=== PATIENT | female | born 1960 | race Caucasian/White ===

== ENCOUNTER → 2017-01-07 | Outpatient (CLI) | payer OTHER ==
--- NOTE | 2017-01-14 10:41 | MM ---
Reason for exam: screening (asymptomatic). Last mammogram was performed 13 years and 11 months ago. Physical Findings: A clinical breast exam by your physician is recommended on an annual basis and results should be correlated with mammographic findings. MG Screening Mammo w CAD Bilateral CC and MLO view(s) were taken. Prior study comparison: October 30, 2015, mammogram, performed at [facility]. November 29, 2014, mammogram, performed at [place]. February 14, 2003, left breast special view mammogram. August 16, 2002, left breast special view mammogram. The breast tissue is heterogeneously dense. This may lower the sensitivity of mammography. There is no discrete abnormality. No significant changes when compared with prior studies. ASSESSMENT: Negative, BI-RAD 1 RECOMMENDATION: Routine screening mammogram of both breasts in 1 year.
== END | disposition home or self-care (01) ==
LOC: RADMAMWWP 07:29
PROVIDERS: ATTEND Family Medicine
DX: Z12.31 Encounter for screening mammogram for malignant neoplasm of breast (principal)

== ENCOUNTER → 2017-06-10 | Outpatient (CLI) | payer OTHER ==
--- NOTE | 2017-06-10 12:14 | XR ---
EXAMINATION TYPE: XR cervical spine comp DATE OF EXAM: 06/10/2017 COMPARISON: NONE HISTORY: Left side neck pain TECHNIQUE: Four views are submitted. FINDINGS: The odontoid is intact. There are no compression deformities. The prevertebral soft tissue structur es are within normal limits. There is moderate severe degenerative disc disease C4-5 and C5-C6 with posterior spondylosis. There is foraminal encroachment at C4-5 and C5-6. The IMPRESSION: 1. Multilevel facet arthropathy and degenerative disc disease.
== END | disposition home or self-care (01) ==
LOC: RADXRMAIN 11:30
PROVIDERS: ATTEND Psychiatry & Neurology Neurology
DX: M50.321 Other cervical disc degeneration at C4-C5 level (principal); M46.92 Unspecified inflammatory spondylopathy, cervical region
CPT/HCPCS: 72050

== ENCOUNTER → 2017-06-22 | Outpatient (CLI) | payer OTHER ==
[2017-06-22 14:49] LABS: Blood Urea Nitrogen 8 mg/dL (7-17); Non-African American GFR(MDRD) >60 (>60 ml/min/1.73 sqM)
== END | disposition home or self-care (01) ==
LOC: LABWHC1 12:51
PROVIDERS: ATTEND Otolaryngology Sleep Medicine
DX: Z01.812 Encounter for preprocedural laboratory examination (principal)
CPT/HCPCS: 36415; 82565; 84520

== ENCOUNTER → 2018-01-27 | Outpatient (CLI) | payer OTHER ==
--- NOTE | 2018-01-28 10:52 | MM ---
Reason for exam: screening (asymptomatic). Last mammogram was performed 1 year and 1 month ago. Physical Findings: A clinical breast exam by your physician is recommended on an annual basis and results should be correlated with mammographic findings. MG Screening Mammo w CAD Bilateral CC and MLO view(s) were taken. CV view(s) were taken of the right breast. Prior study comparison: January 07, 2017, bilateral MG screening mammo w CAD. October 30, 2015, mammogram, performed at [facility]. The breast tissue is heterogeneously dense. This may lower the sensitivity of mammography. No significant changes when compared with prior studies. ASSESSMENT: Benign, BI-RAD 2 RECOMMENDATION: Routine screening mammogram of both breasts in 1 year.
== END | disposition home or self-care (01) ==
LOC: RADMAMWWP 12:35
PROVIDERS: ATTEND Family Medicine
DX: Z12.31 Encounter for screening mammogram for malignant neoplasm of breast (principal)
CPT/HCPCS: 77067

== ENCOUNTER → 2019-04-04 | Outpatient (CLI) | payer OTHER ==
--- NOTE | 2019-04-05 10:16 | MM ---
Reason for exam: screening (asymptomatic). Last mammogram was performed 1 year and 2 months ago. Physical Findings: A clinical breast exam by your physician is recommended on an annual basis and results should be correlated with mammographic findings. MG Screening Mammo w CAD Bilateral CC and MLO view(s) were taken. Prior study comparison: January 27, 2018, bilateral MG screening mammo w CAD. January 07, 2017, bilateral MG screening mammo w CAD. The breast tissue is heterogeneously dense. This may lower the sensitivity of mammography. There is no discrete abnormality. ASSESSMENT: Negative, BI-RAD 1 RECOMMENDATION: Routine screening mammogram of both breasts in 1 year.
== END | disposition home or self-care (01) ==
LOC: RADMAMWWP 10:13
PROVIDERS: ATTEND Family Medicine
DX: Z12.31 Encounter for screening mammogram for malignant neoplasm of breast (principal)
CPT/HCPCS: 77067

== ENCOUNTER → 2019-08-25 | Outpatient (CLI) | payer OTHER ==
[2019-08-25 15:47] VITALS: BMI 26.9
== END | disposition home or self-care (01) ==
LOC: DBWHC3 13:34
PROVIDERS: ATTEND Physician Assistant
DX: E66.3 Overweight (principal); Z68.26 Body mass index [BMI] 26.0-26.9, adult
CPT/HCPCS: 97802

== ENCOUNTER → 2020-04-06 | Outpatient (CLI) | payer OTHER ==
--- NOTE | 2020-04-09 09:52 | MM ---
Reason for exam: screening (asymptomatic). Last mammogram was performed 1 year ago. History: Took hormonal contraceptives for 2 years 6 months. Physical Findings: A clinical breast exam by your physician is recommended on an annual basis and results should be correlated with mammographic findings. MG Screening Mammo w CAD Bilateral CC and MLO view(s) were taken. Prior study comparison: April 04, 2019, bilateral MG screening mammo w CAD. January 27, 2018, bilateral MG screening mammo w CAD. There are scattered fibroglandular densities. Asymmetric breast tissue retroglandular left breast MLO, 14cm from nipple. This finding is changed when compared with previous exams. ASSESSMENT: Incomplete: need additional imaging evaluation, BI-RAD 0 RECOMMENDATION: Special view mammogram of the left breast. If lesion persists on supplemental views, image directed ultrasound is recommended. [facility] will attempt to contact patient to return for supplemental views and ultrasound if indicated.
== END | disposition home or self-care (01) ==
LOC: RADMAMWWP 09:47
PROVIDERS: ATTEND Family Medicine
DX: Z12.31 Encounter for screening mammogram for malignant neoplasm of breast (principal)
CPT/HCPCS: 77067

== ENCOUNTER → 2020-04-10 | Outpatient (CLI) | payer OTHER ==
--- NOTE | 2020-04-10 11:35 | MM ---
Reason for exam: additional evaluation requested from abnormal screening. Last mammogram was performed less than 1 month ago. History: Took hormonal contraceptives for 2 years 6 months. Physical Findings: Nurse did not find any significant physical abnormalities on exam. MG Work Up Mamm w CAD LT CC, MLO, and ML view(s) were taken of the left breast. Prior study comparison: April 06, 2020, bilateral MG screening mammo w CAD. April 04, 2019, bilateral MG screening mammo w CAD. The breast tissue is heterogeneously dense. This may lower the sensitivity of mammography. Irregular 9mm asymmetric density at the axillary tail persists. These results were verbally communicated with the patient and result sheet given to the patient on 04/10/20. ASSESSMENT: Incomplete: need additional imaging evaluation, BI-RAD 0 RECOMMENDATION: Ultrasound of the left breast. (upper outer quadrant)
--- NOTE | 2020-04-10 11:38 | USB ---
Reason for exam: additional evaluation requested from abnormal screening. History: Took hormonal contraceptives for 2 years 6 months. US Breast Workup Limited LT Left limited breast ultrasound including focal area of concern, retroareolar and axilla demonstrates a 7 x 5 x 7mm oval, irregular, solid, hypoechoic, hyperechoic lesion at 1 o'clock, biopsy recommended, a 5mm oval, lymph node at the axilla tail, appears normal and a 4mm oval lymph node at the axilla tail, appears normal. Scanned 12-3 o'clock. No other solid or cystic lesion. These results were verbally communicated with the patient and result sheet given to the patient on 04/10/20. ASSESSMENT: Suspicious, BI-RAD 4 RECOMMENDATION: Ultrasound core biopsy of the left breast. Called Dr. Stern's office with mammographic findings. Biopsy scheduled for 04/19/20 at 1:00. PRELIMINARY REPORT CALLED AND FAXED TO DR. STERN ON 04/10/20.
== END | disposition home or self-care (01) ==
LOC: RADMAMWWP 08:11
PROVIDERS: ATTEND Family Medicine
DX: R92.8 Other abnormal and inconclusive findings on diagnostic imaging of breast (principal)
CPT/HCPCS: 77065

== ENCOUNTER → 2020-04-19 | Day surgery (SDC) | payer OTHER ==
[2020-04-19 12:29] VITALS: RESP 16
[2020-04-19 13:48] VITALS: BP 149/84; PULSE 65; TEMP 98.4
--- NOTE | 2020-04-19 14:37 | USB ---
EXAMINATION TYPE: US biopsy breast VAD LT, MG diagnostic mammo LT wo CAD DATE OF EXAM: 04/19/2020 CLINICAL HISTORY: R92.8 ABN MAMMO. TECHNIQUE: Ultrasound guided core biopsy of left breast. COMPARISON: Mammogram dated 04/06/2020, ultrasound left breast 04/10/2020 FINDINGS: The procedure of ultrasound guided core biopsy was explained to the patient. Benefits, alt ernatives, and risks were discussed. An informed consent was then obtained. The patient was placed in supine positioning for imaging and for the procedure. The overlying skin w as prepped and draped in usual sterile fashion. Lidocaine was used as anesthetic into the skin and s ubcutaneous tissue up to area of concern in the left breast. A arnoldo was made with surgical scalpel. Under ultrasound guidance, a 12-gauge vacuum assisted biopsy gun device was used to obtain 5 [address]es. Following this, a biopsy clip was left in lesion. Postprocedure mammogram shows migration of t he clip along the tract approximately 3 cm superficially. The patient tolerated the procedure well without any immediate complication. The patient was kept in the radiology department for short stay after the procedure and then discharged home in stable condi tion. IMPRESSION: Successful, uncomplicated ultrasound guided core biopsy of area of concern in the 1:00 po sition of the left breast, full pathology results to follow. This procedure performed by the brianna aviles.
== END ==
LOC: RADUSWWP 11:52
PROVIDERS: ATTEND Family Medicine
DX: C50.912 Malignant neoplasm of unspecified site of left female breast (principal); Z17.0 Estrogen receptor positive status [ER+]
CPT/HCPCS: 88305; 88342; 88341; 77065; 19083; A4648; J2001

== ENCOUNTER → 2020-05-09 | Outpatient (CLI) | payer OTHER ==
[~2020-05-09] MED LIST: HEPARIN SODIUM,PORCINE 5,000 UNIT/ML 1 ML VIAL ONE
[2020-05-09 13:48] VITALS: BP 127/80; PULSE 67; RESP 20; TEMP 98
--- NOTE | 2020-05-09 14:44 | P.GSHP ---
History of Present Illness H&P Date: 05/09/20 Chief Complaint: stage IA left breast cancer Yuliana is a 59-year-old white female who underwent a routine screening mammogram performed on was noted to have an area of irregularity in the left breast upper outer quadrant. She subsequently underwent a diagnostic mammogram of the left breast and left breast ultrasound. This revealed a 9 mm asymmetric density in the axillary tail. Ultrasound-guided core biopsy was performed which revealed a grade 2 invasive ductal carcinoma. This is ER positive NM HER-2 negative. The patient does not feel anything of concern in her breast. She is not complaining of any nipple discharge or skin changes. She does not complain of any recent trauma to her breast. No infection in the breast. Caffeine: pop daily Nicotine: none Theophylline: Daily Family history: father: lung cancer (smoker) paternal great aunt: breast cancer paternal grandmother: colon cancer Hormonal History: menarche: 12 , breast fed: yes, age at first : 20 menopause: hysterectomy at 47 left ovaries, heavy bleeding BCP: 1 years, than a tubal hormones: none Surgical history: 1. Hysterectomy 2. Appendectomy 3. colonoscopy Medical History: 1. High cholesterol 2. Hypertension 3. Hypothyroidism 4. Vitamin D well Social History: Nicotine: Negative Alcohol: Negative Drugs: Negative - Constitutional Constitutional: Denies chills, Denies fever - EENT Eyes: denies blurred vision, denies pain Ears: deny: decreased hearing, tinnitus Ears, nose, mouth and throat: Denies headache, Denies sore throat - Breasts Breasts: bilateral: as per HPI - Cardiovascular Cardiovascular: Denies chest pain, Denies shortness of breath - Respiratory Respiratory: Denies cough, Denies 7 - Gastrointestinal Gastrointestinal: Denies abdominal pain, Denies diarrhea, Denies nausea, Denies vomiting - Genitourinary (Female) Genitourinary: Denies dysuria, Denies hematuria - Menstruation Menstruation: Reports post hysterectomy - Musculoskeletal Comment: cervical spine arthritis - Integumentary Integumentary: Denies pruritus, Denies rash - Neurological Neurological: Denies numbness, Denies weakness - Psychiatric Psychiatric: Reports anxiety - Endocrine Comment: hypothyroid - Hematologic/Lymphatic Comment: none - Allergic/Immunologic Allergic/Immunologic: Reports as per HPI, Reports seasonal allergies Past Medical History Past Medical History: Hyperlipidemia, Hypertension, Thyroid Disorder History of Any Multi-Drug Resistant Organisms: None Reported Past Surgical History: Appendectomy, Hysterectomy, Tubal Ligation Additional Past Surgical History / Comment(s): colonoscopy Past Anesthesia/Blood Transfusion Reactions: No Reported Reaction Past Psychological History: Anxiety Smoking Status: Never smoker Past Alcohol Use History: None Reported Past Drug Use History: None Reported Medications and Allergies Home Medications Medication Instructions Recorded Confirmed Type Cholecalciferol [Vitamin D3 (25 5,000 unit PO DAILY 04/11/20 05/09/20 History Mcg = 1000 Iu)] Fluticasone Nasal [place] [Flonase 2 spr EA NOSTRIL QA 04/11/20 05/09/20 History Nasal [place]] Levothyroxine Sodium [Tirosint] 75 mcg PO QA 04/11/20 05/09/20 History Simvastatin [Zocor] 20 mg PO HS 04/11/20 05/09/20 History lisinopriL [Prinivil] 20 mg PO 04/11/20 05/09/20 History Allergies Allergy/AdvReac Type Severity Reaction Status Date / Time amoxicillin Allergy Unknown Verified 05/09/20 13:42 Surgical - Exam Vital Signs Temp Pulse Resp BP Pulse Ox 98.0 F 67 20 127/80 100 05/09/20 13:44 05/09/20 13:44 05/09/20 13:44 05/09/20 13:44 05/09/20 13:44 BMI 27.1 - General well developed, well nourished, no distress - Eyes normal ocular movement - ENT no hearing loss, no congestion - Neck trachea midline - Respiratory normal respiratory effort, clear to auscultation - Cardiovascular Rhythm: regular Heart Sounds: normal: S1, S2 - Abdomen Abdomen: soft, non tender, no guarding, no rigid, no rebound - Integumentary normal turgor - Neurologic no disoriented, no combative - Musculoskeletal normal gait, normal posture - Psychiatric oriented to time, oriented to person, oriented to place, speech is normal, memory intact breast exam: BRA : 38D inspection: bilateral grade 3 ptosis palpation: right breast: Positional exam no dominant masses or nodules of concern Right axilla: No adenopathy of concern Left breast: Multiple positional exam no dominant masses or nodules of concern, small skin change for the ultrasound core biopsy was performed Left axilla: No adenopathy of concern Results Mammogram and ultrasound reviewed Pathology results reviewed/invasive ductal carcinoma grade 2 ER positive NM negative HER-2 negative Assessment and Plan Assessment: Impression: 1. Stage IA left breast cancer 2. Cervical spine disease Plan: 1. medical clearance /DR. Stern 2. Left breast needle localization lumpectomy with possible onc- plastic tissue transfer, sentinel node injection sentinel node biopsy, possible axillary node dissection 3. present to tumor board 4. Appointment with radiation oncology The patient was given the option of mastectomy versus lumpectomy. It was recommended that she undergo a lumpectomy. She is in agreement. Risks and benefits of the procedure including bleeding infection reaction to the anesthetic as well as a possible positive margin requiring reexcision were discussed. She understands and wishes to proceed. Additionally we discussed sentinel node biopsy possible axillary node dissection. Again she understands risks and benefits including bleeding and infection reaction to the anesthetic, possible lymphedema, possible need to do a completion dissection if the node were noted to be positive on permanent section and she wishes to proceed. CC: Dr. Stern encounter 50 minutes > 50% of time in planning and counselling
== END | disposition home or self-care (01) ==
LOC: WWCWWP 13:30
PROVIDERS: ATTEND Surgery
DX: Z53.9 Procedure and treatment not carried out, unspecified reason (principal)

== ENCOUNTER 2020-06-06 08:46 | Day surgery (SDC) | payer OTHER ==
[2020-06-04 11:38] VITALS: BMI 26.3
[~2020-06-06 08:46] MED LIST changes: +FAMOTIDINE 20 MG/2 ML VIAL IV PRN; -HEPARIN SODIUM,PORCINE 5,000 UNIT/ML 1 ML VIAL ONE; +HEPARIN SODIUM,PORCINE 5,000 UNIT/ML 1 ML VIAL SQ ONE; +HYDROmorphone 0.5 MG/0.5 ML SYRINGE IVP PRN; +LACTATED RINGERS 1,000 ML IV SCH; +ONDANSETRON 4 MG/2 ML VIAL IVP PRN; +Pre Op ABX Message 1 EACH MISC MISCELLANE ONE
[2020-06-06] MEDS ORDERED: ONDANSETRON 4 MG/2 ML VIAL ONE (09:14)
[2020-06-06] MEDS ORDERED: ALPRAZolam 0.5 MG TAB ONE (09:14)
[2020-06-06] MEDS ORDERED: ALPRAZolam 0.5 MG TAB PO ONE (09:17)
[2020-06-06] MEDS ORDERED: LIDOCAINE 1% (10MG/ML) FOR IV START INTRADERMA ONE (09:17)
[2020-06-06] MEDS ORDERED: LIDOCAINE 1% INJ 10MG/ML (20 ML MDV) SQ ONE ×2 (10:29→13:23)
--- NOTE | 2020-06-06 11:28 | NM ---
EXAMINATION TYPE: NM sentinel node injection DATE OF EXAM: 06/06/2020 COMPARISON: NONE INDICATION: Abnormal mammogram. Informed consent was obtained. A timeout was performed. The area around the left nipple was cleansed with alcohol. In a single dose, a total of 477 micro-cu sunil Technetium 99m Tilmanocept was injected. The patient tolerated the procedure. IMPRESSIONS: 1.. Successful injection for sentinel node evaluation.
--- NOTE | 2020-06-06 11:36 | P.NAPBC ---
NAPBC Queries - NAPBC Queries Was patient's case review presented at [facility] tumor board? If no, comment.: Yes Was patient's pathology reviewed at [facility]? If no, comment.: Yes Was breast conservation surgery offered? If no, comment.: Yes Was sentinel node biopsy offered? If no, comment.: Yes Was diagnosis confirmed by percutaneous core biopsy? If no, comment.: Yes Is patient mastectomy patient?: No Was a preop referral to reconstructive surgeon offered?: No Clinical Stage: Stage 1A, [id number]
[2020-06-06] MEDS ORDERED: DEXAMETHASONE SOD PHOSPHATE 10 MG/ML 1 ML VIAL IV ONE (11:53)
[2020-06-06] MEDS ORDERED: LIDOCAINE 1% INJ 10MG/ML (20 ML MDV) ONE ×2 (12:10→12:21)
[2020-06-06] MEDS ORDERED: SUCCINYLCHOLINE CHLORIDE 100 MG/5 ML SYR IV ONE (12:21)
[2020-06-06] MEDS ORDERED: MIDAZOLAM 2 MG/2 ML VIAL ONE (12:21)
[2020-06-06] MEDS ORDERED: PROPOFOL 10 MG/ML 20 ML VIAL IV ONE (12:21)
[2020-06-06] MEDS ORDERED: DEXAMETHASONE SOD PHOSPHATE 10 MG/ML 1 ML VIAL ONE (12:21)
[2020-06-06] MEDS ORDERED: fentaNYL (PF) 50 MCG/ML 2 ML AMP ONE (12:21)
[2020-06-06] MEDS ORDERED: PHENYLEPHRINE-0.9% NACL SYG 1 MG/10 ML SYRINGE ONE (12:21)
[2020-06-06] MEDS ORDERED: LACTATED RINGERS 1,000 ML IV ONE (13:14)
--- NOTE | 2020-06-06 14:10 | P.OP ---
Date of Procedure: 06/06/20 Preoperative Diagnosis: (Stage IA invasive ductal carcinoma, left breast at 11:30 position Postoperative Diagnosis: Same Procedure(s) Performed: Left breast sentinel node biopsy, left breast needle localization lumpectomy 11 o'clock position, onco-plastic tissue transfer 20 cm Anesthesia: LUCA Surgeon: Viola Marroquin Estimated Blood Loss (ml): 5 IV fluids (ml): 500 Pathology: other ([place] node, and breast tissue) Condition: stable Disposition: same day Indications for Procedure: Stage I area left breast cancer/invasive ductal Operative Findings: Dense breast tissue Description of Procedure: There is a 59-year-old white female who was diagnosed with a stage IA left breast cancer. A biopsy. She has opted for a lumpectomy and sentinel node biopsy. Risks and benefits of the procedure were discussed with the patient and she wished to proceed. The axilla was interrogated using the neoprobe and radioactivity was noted in the axilla. The left breast and axilla were prepped and draped in a sterile fashion. The sentinel node biopsy was performed initially. Noting the place of greatest radioactivity An incision was made in the axilla. Deep dissection into the axilla revealed a radioactive lymph node. Using the Harmonic scalpel the node was removed. The 10 second count on the node was 17,552. The background count at 10 seconds was 10. Was irrigated. The lobe was small and did not appear to be clinically suspicious. The deep tissues were closed using 0 Vicryl suture. The skin was closed using 3-0 Vicryl subcu cutaneous tissue and a 4-0 Monocryl subcuticular suture. The area of the breast was approached. An incision was made and carried down to the shaft of the needle. 2 needles had been placed. These were followed posteriorly to the chest wall. Dissection was performed onto the pectoralis major muscle. The surrounding tissue was excised. The tissue was painted for orientation. Anterior: Black, posterior: Green, inferior: Thyroid, superior: Blue,: Yellow, and lateral: Normal range. After this was accomplished the bed of the cavity was well irrigated. Titanium clips were placed. Tissue was mobilized superiorly and inferiorly. Approximately a total of 20 cm of tissue was mobilized. A new inferior margin was obtained. The tissue was then brought together using 3-0 Vicryl suture. Radiograph of the specimen revealed that the lesion of concern had been removed. The skin was closed using 3-0 Vicryl subcu cutaneous tissue and 4-0 Monocryl subcuticular suture. The patient tolerated the procedure in stable condition. All instrument sponge counts were correct at the end of the case.
--- NOTE | 2020-06-06 14:12 | P.DS ---
Providers Attending physician: Viola Marroquin Primary care physician: Js Stern Plan - Discharge Summary Discharge Rx Participant: Yes New Discharge Prescriptions: No Action Cholecalciferol [Vitamin D3 (25 Mcg = 1000 Iu)] 5,000 unit PO DAILY lisinopriL [Prinivil] 20 mg PO HS Fluticasone Nasal [place] [Flonase Nasal [place]] 1 spr EA NOSTRIL QAM Levothyroxine Sodium [Tirosint] 75 mcg PO QAM Simvastatin [Zocor] 40 mg PO HS Discharge Medication List Cholecalciferol [Vitamin D3 (25 Mcg = 1000 Iu)] 5,000 unit PO DAILY 04/11/20 [History] Fluticasone Nasal [place] [Flonase Nasal [place]] 1 spr EA NOSTRIL QAM 04/11/20 [History] Levothyroxine Sodium [Tirosint] 75 mcg PO QAM 04/11/20 [History] lisinopriL [Prinivil] 20 mg PO HS 04/11/20 [History] Simvastatin [Zocor] 40 mg PO HS 06/04/20 [History] Follow up Appointment(s)/Referral(s): Viola Marroquin MD [STAFF PHYSICIAN] - 1 Week Activity/Diet/Wound Care/Special Instructions: Drive for 24 hours from discharge Do not drive if taking narcotic pain medication Wear bra at all times May shower after 48 hours Discharge Disposition: HOME SELF-CARE
[2020-06-06 14:23] VITALS: TEMP 97.7
[2020-06-06] MEDS ORDERED: KETOROLAC 15 MG/ML 1 ML VIAL IVP ONE (14:40)
[2020-06-06 15:24] VITALS: PULSE 70; RESP 16
[2020-06-06 15:42] VITALS: BP 121/61
--- NOTE | 2020-06-06 20:07 | USB ---
EXAMINATION TYPE: US breast localization LT DATE OF EXAM: 06/06/2020 COMPARISON: Breast biopsy ultrasound 04/19/2020, diagnostic mammogram 04/19/2020, breast ultrasound 03/22 CLINICAL HISTORY: Biopsy-proven neoplasm breast TECHNIQUE: Ultrasound-guided Needle localization with wire placement of area of concern in the left b reast. FINDINGS: The procedure of ultrasound-guided needle localization with wire placement for surgical exc ision was explained to the patient. Risk, benefits, and alternatives were discussed. An informed co nsent was then obtained. A timeout was performed. The overlying skin was prepped and draped in usual sterile fashion. Lidocaine 1% was used as anesthe tic into the skin and subcutaneous tissue up to the level of area of concern. A 7 cm needle was used . This was placed via a lateral approach under ultrasound guidance. The needle was advanced into th e inferior border of the hypoechoic lesion. The wire was placed through the needle and the distal anc horing tip deployed just distal to the lesion. The needle was withdrawn. The wire was fixed to patie nt's skin. Subsequently, two 90 degrees mammograms show the needle to be in the breast. The tip however appears to be away from the expected neoplasm identified by mammography. The biopsy clip is felt to be displ aced away from the actual biopsy site was discussed with the surgeon. Images were marked for surgeon . The case was discussed with the surgeon. Radiology will rescan to evaluate for possible wire disloc ation. If wire position cannot be confirmed new wire placement will be performed. Real-time linear array sonography is performed over the breast with the wire. The wire echogenicity h owever is insufficient for accurate identification of the tip. Motion was utilized to supplement the evaluation. Motion extending towards but not to or through the lesion was evident. It was felt that t he wire had been displaced and a subsequent wire was placed at the bedside. Following identification of the patient and explanation of the repeat procedure, the skin and deeper breast tissue was again anesthetized with 1% lidocaine. A 9 cm needle utilizing a lateral approach wa s advanced and this needle was placed through the superior portion of the ultrasound lesion. The wire was deployed with the tip just distal to the lesion and the needle withdrawn. Hemostasis was obtaine d with direct pressure for mild bleeding of less than 5 mL. The surgeon observed the procedure. The 9 cm wire was labeled with tape by the surgeon. The wires were fixed to the patient's chest the patien t was taken to the OR for surgery. The patient tolerated the procedures well without any immediate complication. Patient was sensitive t o the needle placements, needle injection for local anesthetization and sentinel node injection perfo rmed between the 2 wire localizations. Specimen: Mammographic specimen: The 2 wires are within the specimen. The expected mammographic densi ty localizes within the specimen. The surgical clip is also within the specimen. Ultrasound specimen: The wire is within the specimen. The ultrasound abnormality localized appears to be within the specimen as well. Specimen report was called to the OR. IMPRESSION: 1. Successful wire localization and excision. Recommendations: 1. Recommendations are pending pathology results.
--- NOTE | 2020-06-06 20:07 | USB ---
EXAMINATION TYPE: US breast localization LT DATE OF EXAM: 06/06/2020 COMPARISON: Breast biopsy ultrasound 04/19/2020, diagnostic mammogram 04/19/2020, breast ultrasound 04/10/2020 CLINICAL HISTORY: Biopsy-proven neoplasm breast TECHNIQUE: Ultrasound-guided Needle localization with wire placement of area of concern in the left breast. FINDINGS: The procedure of ultrasound-guided needle localization with wire placement for surgical excision was explained to the patient. Risk, benefits, and alternatives were discussed. An informed consent was then obtained. A timeout was performed. The overlying skin was prepped and draped in usual sterile fashion. Lidocaine 1% was used as anesthetic into the skin and subcutaneous tissue up to the level of area of concern. A 7 cm needle was used. This was placed via a lateral approach under ultrasound guidance. The needle was advanced into the inferior border of the hypoechoic lesion. The wire was placed through the needle and the distal anchoring tip deployed just distal to the lesion. The needle was withdrawn. The wire was fixed to patient's skin. Subsequently, two 90 degrees mammograms show the needle to be in the breast. The tip however appears to be away from the expected neoplasm identified by mammography. The biopsy clip is felt to be displaced away from the actual biopsy site was discussed with the surgeon. Images were marked for surgeon. The case was discussed with the surgeon. Radiology will rescan to evaluate for possible wire dislocation. If wire position cannot be confirmed new wire placement will be performed. Real-time linear array sonography is performed over the breast with the wire. The wire echogenicity however is insufficient for accurate identification of the tip. Motion was utilized to supplement the evaluation. Motion extending towards but not to or through the lesion was evident. It was felt that the wire had been displaced and a subsequent wire was placed at the bedside. Following identification of the patient and explanation of the repeat procedure, the skin and deeper breast tissue was again anesthetized with 1% lidocaine. A 9 cm needle utilizing a lateral approach was advanced and this needle was placed through the superior portion of the ultrasound lesion. The wire was deployed with the tip just distal to the lesion and the needle withdrawn. Hemostasis was obtained with direct pressure for mild bleeding of less than 5 mL. The surgeon observed the procedure. The 9 cm wire was labeled with tape by the surgeon. The wires were fixed to the patient's chest the patient was taken to the OR for surgery. The patient tolerated the procedures well without any immediate complication. Patient was sensitive to the needle placements, needle injection for local anesthetization and sentinel node injection performed between the 2 wire localizations. Specimen: Mammographic specimen: The 2 wires are within the specimen. The expected mammographic density localizes within the specimen. The surgical clip is also within the specimen. Ultrasound specimen: The wire is within the specimen. The ultrasound abnormality localized appears to be within the specimen as well. Specimen report was called to the OR. IMPRESSION: 1. Successful wire localization and excision. Recommendations: 1. Recommendations are pending pathology results. Pathology Results: Malignant A. LEFT AXILLARY SENTINEL NODE, BIOPSY: Lymph node negative for metastasis. CK7 and RAN immunoperoxidase stains are confirmatory (controls appropriate). B. 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 Margins negative for invasive carcinoma or DCIS. See Surgical Pathology Cancer Case Summary. C. LEFT BREAST, NEW INFERIOR MARGIN, EXCISION: Benign breast tissue with fibrocystic changes. Recommendation Surgical consult of the left breast. ALISTAIR
== END 2020-06-06 15:59 | disposition home or self-care (01) ==
LOC: OR 08:46
PROVIDERS: ATTEND Surgery
DX: C50.912 Malignant neoplasm of unspecified site of left female breast (principal); E78.00 Pure hypercholesterolemia, unspecified; I10 Essential (primary) hypertension; E03.9 Hypothyroidism, unspecified; F41.9 Anxiety disorder, unspecified; E78.5 Hyperlipidemia, unspecified; E55.9 Vitamin D deficiency, unspecified; H93.19 Tinnitus, unspecified ear; Z90.710 Acquired absence of both cervix and uterus; Z98.890 Other specified postprocedural states; Z98.51 Tubal ligation status; Z80.1 Family history of malignant neoplasm of trachea, bronchus and lung; Z80.3 Family history of malignant neoplasm of breast; Z80.0 Family history of malignant neoplasm of digestive organs; Z83.3 Family history of diabetes mellitus; Z82.49 Family history of ischemic heart disease and other diseases of the circulatory system; Z82.3 Family history of stroke; Z83.42 Family history of familial hypercholesterolemia; Z84.2 Family history of other diseases of the genitourinary system; Z79.890 Hormone replacement therapy; Z79.899 Other long term (current) drug therapy; J30.9 Allergic rhinitis, unspecified; Z88.0 Allergy status to penicillin; Z86.19 Personal history of other infectious and parasitic diseases; Z86.010 Personal history of colon polyps; F32.9 Major depressive disorder, single episode, unspecified; Z87.01 Personal history of pneumonia (recurrent)
CPT/HCPCS: 19301; 38525; 88342; 88307; 88341; 77065; 76098; 76999; 76642; 38792; A9520; J2250; J1644; J1100; J2405; J2001; J3010; J1885; J2370; J0330; J2704

== ENCOUNTER → 2020-06-15 | Outpatient (CLI) | payer OTHER ==
[2020-06-15 16:23] VITALS: BP 135/74; PULSE 95; RESP 16; TEMP 98.2
--- NOTE | 2020-06-15 16:36 | P.PN ---
Progress Note - Text Progress Note Date: 06/15/20 Yuliana is a 59 year old white female status post a left breast lumpect[place] [id number]. Pathology revealed all margins to be negative for cancer. All lymph nodes were negative for metastatic disease. Patient is doing well postop without any complaints. Physical examination: Lungs: Clear Heart: Regular rate and rhythm Incisions clean and dry Impression: 1. Patient doing well postop left breast lumpectomy and sentinel node biopsy Plan: 1. Appointment medical oncology 2. Appointment radiation oncology 2. Follow-up here in 4 months time CC: Dr. Stern
== END | disposition home or self-care (01) ==
LOC: WWCWWP 16:07
PROVIDERS: ATTEND Surgery
DX: Z53.9 Procedure and treatment not carried out, unspecified reason (principal)

== ENCOUNTER → 2020-08-10 | Outpatient (CLI) | payer OTHER ==
--- NOTE | 2020-08-10 16:00 | XR ---
Lumbar spine HISTORY: Low back pain 3 views the lumbar spine Lumbar vertebral bodies show preserved height, alignment, bone mineralization. There is loss of disc height especially at L5-S1, L4-5 greater than L3-4, L2-3. Sclerosis present in the posterior elements . Is multilevel spondylosis. There is a slight spinal curvature. IMPRESSION: Degenerative disc disease, facet arthropathy, spinal curvature.
== END | disposition home or self-care (01) ==
LOC: RADXRMAIN 09:44
PROVIDERS: ATTEND Internal Medicine Hematology & Oncology
DX: M51.36 Other intervertebral disc degeneration, lumbar region (principal); M47.816 Spondylosis without myelopathy or radiculopathy, lumbar region; M43.8X6 Other specified deforming dorsopathies, lumbar region; I10 Essential (primary) hypertension; Z71.3 Dietary counseling and surveillance; E78.5 Hyperlipidemia, unspecified; C50.412 Malignant neoplasm of upper-outer quadrant of left female breast
CPT/HCPCS: 72100

== ENCOUNTER → 2020-10-12 | Outpatient (CLI) | payer OTHER ==
[2020-10-12 14:50] VITALS: BP 116/69; PULSE 71; RESP 18; TEMP 97.8
--- NOTE | 2020-10-12 15:07 | P.PN ---
Subjective Progress Note Date: 10/12/20 Principal diagnosis: left breast stage IA invasive ductal cancer Yuliana is a 60-year-old white female who underwent a routine screening mammogram performed on was noted to have an area of irregularity in the left breast upper outer quadrant. She subsequently underwent a diagnostic mammogram of the left breast and left breast ultrasound. This revealed a 9 mm asymmetric density in the axillary tail. Ultrasound-guided core biopsy was performed which revealed a grade 2 invasive ductal carcinoma. This is ER positive [place] HER-2 negative. The patient does not feel anything of concern in her breast. She did not complain of any nipple discharge or skin changes. She underwent a left breast lumpectomy and sentinel node biopsy and . Pathology revealed all margins to be negative for cancer. All lymph nodes were negative for metastatic disease. She finished 16 courses of radiation therapy on August 07. She is now on femara. She is tolerating this well. She is not concerned about any lumps masses or nodules in either breast. Caffeine: pop daily decreased from before Nicotine: none Theophylline: Daily Family history: father: lung cancer (smoker) paternal great aunt: breast cancer paternal grandmother: colon cancer Hormonal History: menarche: 12 , breast fed: yes, age at first : 20 menopause: hysterectomy at 47 left ovaries, heavy bleeding BCP: 1 years, than a tubal hormones: none Surgical history: 1. Hysterectomy 2. Appendectomy 3. colonoscopy 4. left breast lumpetomy and SNB Medical History: 1. High cholesterol 2. Hypertension 3. Hypothyroidism 4. Vitamin D well Social History: Nicotine: Negative Alcohol: Negative Drugs: Negative - Constitutional Constitutional: Denies chills, Denies fever - EENT Eyes: denies blurred vision, denies pain Ears: deny: decreased hearing, tinnitus Ears, nose, mouth and throat: Denies headache, Denies sore throat - Breasts Breasts: bilateral: as per HPI - Cardiovascular Cardiovascular: Denies chest pain, Denies shortness of breath - Respiratory Respiratory: Denies cough - Gastrointestinal Gastrointestinal: Denies abdominal pain, Denies diarrhea, Denies nausea, Denies vomiting - Genitourinary (Female) Genitourinary: Denies dysuria, Denies hematuria - Menstruation Menstruation: Reports post hysterectomy - Musculoskeletal Comment: cervical spine arthritis - Integumentary Integumentary: Denies pruritus, Denies rash - Neurological Neurological: Denies numbness, Denies weakness - Psychiatric Psychiatric: Reports anxiety - Endocrine Comment: hypothyroid - Hematologic/Lymphatic Comment: none - Allergic/Immunologic Allergic/Immunologic: Reports as per HPI, Reports seasonal allergies Objective - Vital Signs Vital signs: Vital Signs Temp 97.8 F 10/12/20 14:48 Pulse 71 10/12/20 14:48 Resp 18 10/12/20 14:48 BP 116/69 10/12/20 14:48 Pulse Ox 97 10/12/20 14:48 Intake & Output 10/11/20 10/12/20 10/12/20 18:59 06:59 18:59 Weight 74.843 kg - Exam BMI 26.2 - Constitutional General appearance: Present: average body habitus - EENT Eyes: Present: EOMI ENT: Present: hearing grossly normal - Neck Neck: Present: normal ROM - Respiratory Respiratory: bilateral: CTA - Cardiovascular Rhythm: regular Heart sounds: normal: S1, S2 - Gastrointestinal General gastrointestinal: Present: normal bowel sounds, soft - Integumentary Integumentary: Present: normal turgor - Musculoskeletal Musculoskeletal: Present: gait normal - Psychiatric Psychiatric: Present: A&O x's 3, appropriate affect, intact judgment & insight - Additional findings Additional findings: breast exam: BRA 38D inspection: well-healed scar left breast radiation changes, bilateral grade 3 ptosis Palpation: Right breast: Multi-positional exam fibrocystic changes, no dominant masses or nodules of concern Right axilla: No adenopathy of concern Left breast: Well-healed scar from prior lumpectomy, radiation changes, no dominant masses or nodules of concern, fibrocystic changes Left axilla: No adenopathy of concern Assessment and Plan Assessment: Depression: 1. Patient doing well status post lumpectomy sentinel node biopsy left breast stage IA invasive ductal carcinoma 2. Completed radiation therapy 3. Patient presently on for more Plan: 1. Follow up in March bilateral mammogram 2. follow up in December for exam 3. continue follow up with medical and radiation oncology CC: Dr. Stern, Dr. Dotson encounter 20 minutes, > 50% of time in planning and counselling
== END | disposition home or self-care (01) ==
LOC: WWCWWP 14:21
PROVIDERS: ATTEND Surgery
DX: Z53.9 Procedure and treatment not carried out, unspecified reason (principal)

== ENCOUNTER → 2021-01-18 | Outpatient (CLI) | payer OTHER ==
[2021-01-18 08:43] VITALS: BP 123/69; PULSE 71; RESP 18; TEMP 98
--- NOTE | 2021-01-18 08:57 | P.PN ---
Subjective Progress Note Date: 01/18/21 Principal diagnosis: left breast cancer stage IA left breast stage IA invasive ductal cancer Yuliana is a 60-year-old white female who underwent a routine screening mammogram performed on was noted to have an area of irregularity in the left breast upper outer quadrant. She subsequently underwent a diagnostic mammogram of the left breast and left breast ultrasound. This revealed a 9 mm asymmetric density in the axillary tail. Ultrasound-guided core biopsy was performed which revealed a grade 2 invasive ductal carcinoma. This is ER positive [place] HER-2 negative. The patient does not feel anything of concern in her breast. She did not complain of any nipple discharge or skin changes. She underwent a left breast lumpectomy and sentinel node biopsy on . Pathology revealed all margins to be negative for cancer. All lymph nodes were negative for metastatic disease. She finished 16 courses of radiation therapy on August 07. She is now on femara. She is tolerating this well. She is not concerned about any lumps masses or nodules in either breast. She has some concerns as a friend had a recurrent breast cancer, however, the patient does not note any changes she is concerned about. Caffeine: pop daily decreased from before Nicotine: none Theophylline: Daily Family history: father: lung cancer (smoker) paternal great aunt: breast cancer paternal grandmother: colon cancer Hormonal History: menarche: 12 , breast fed: yes, age at first : 20 menopause: hysterectomy at 47 left ovaries, heavy bleeding BCP: 1 years, than a tubal hormones: none Surgical history: 1. Hysterectomy 2. Appendectomy 3. colonoscopy 4. left breast lumpetomy and SNB Medical History: 1. High cholesterol 2. Hypertension 3. Hypothyroidism 4. Vitamin D well Social History: Nicotine: Negative Alcohol: Negative Drugs: Negative - Constitutional Constitutional: Denies chills, Denies fever - EENT Eyes: denies blurred vision, denies pain Ears: deny: decreased hearing, tinnitus Ears, nose, mouth and throat: Denies headache, Denies sore throat - Breasts Breasts: bilateral: as per HPI - Cardiovascular Cardiovascular: Denies chest pain, Denies shortness of breath - Respiratory Respiratory: Denies cough - Gastrointestinal Gastrointestinal: Denies abdominal pain, Denies diarrhea, Denies nausea, Denies vomiting - Genitourinary (Female) Genitourinary: Denies dysuria, Denies hematuria - Menstruation Menstruation: Reports post hysterectomy - Musculoskeletal Comment: cervical spine arthritis - Integumentary Integumentary: Denies pruritus, Denies rash - Neurological Neurological: Denies numbness, Denies weakness - Psychiatric Psychiatric: Reports anxiety - Endocrine Comment: hypothyroid - Hematologic/Lymphatic Comment: none - Allergic/Immunologic Allergic/Immunologic: Reports as per HPI, Reports seasonal allergies Objective - Vital Signs Vital signs: Vital Signs Temp 98.0 F 01/18/21 08:41 Pulse 71 01/18/21 08:41 Resp 18 01/18/21 08:41 BP 123/69 01/18/21 08:41 Pulse Ox 97 01/18/21 08:41 Intake & Output 01/17/21 01/18/21 01/18/21 18:59 06:59 18:59 Weight 75.296 kg - Exam BMI 26.4 - Constitutional General appearance: Present: average body habitus - EENT Eyes: Present: EOMI ENT: Present: hearing grossly normal - Neck Neck: Present: normal ROM - Respiratory Respiratory: bilateral: CTA - Cardiovascular Rhythm: regular Heart sounds: normal: S1, S2 - Integumentary Integumentary: Present: normal turgor - Musculoskeletal Musculoskeletal: Present: gait normal - Psychiatric Psychiatric: Present: A&O x's 3, appropriate affect, intact judgment & insight - Additional findings Additional findings: breast exam: BRA: 36D inspection: Bilateral grade 2/3 ptosis Palpation: Right breast: Multi-positional exam fibrocystic changes, no dominant masses or nodules of concern Right axilla: No adenopathy of concern Left breast: Postop changes well-healed scar no dominant masses or nodules of concern and multiple positional exam Left axilla: No adenopathy of concern Assessment and Plan Assessment: Impression/Plan: 1. Patient status post left breast lumpectomy and sentinel node biopsy for stage I a left breast cancer, patient did receive radiation therapy and is presently on for more which is tolerating well 2. Patient due for bilateral mammogram in March physician exam at that time 3. Patient to follow up sooner if any questions or concerns Cc: Dr. Stern
== END ==
LOC: WWCWWP 08:22
PROVIDERS: ATTEND Surgery
DX: C50.912 Malignant neoplasm of unspecified site of left female breast (principal); E03.9 Hypothyroidism, unspecified; E78.00 Pure hypercholesterolemia, unspecified; I10 Essential (primary) hypertension; Z17.0 Estrogen receptor positive status [ER+]; Z98.890 Other specified postprocedural states

== ENCOUNTER → 2021-04-12 | Outpatient (CLI) | payer OTHER ==
--- NOTE | 2021-04-12 14:03 | MM ---
Reason for exam: additional evaluation requested from prior study. Last mammogram was performed 10 months ago. History: Patient is postmenopausal and has history of breast cancer at age 59. Malignant US breast localization LT of the left breast, June 06, 2020. Lumpectomy of the left breast, June 06, 2020. Malignant US biopsy breast VAD LT of the left breast, April 19, 2020. Radiation therapy of the left breast. Took hormonal contraceptives for 2 years 6 months. Physical Findings: Nurse did not find any significant physical abnormalities on exam. MG Diagnostic Mammo w CAD MARIO Bilateral CC and MLO view(s) were taken. Prior study comparison: April 19, 2020, left breast MG diagnostic mammo LT wo CAD. April 04, 2019, bilateral MG screening mammo w CAD. There are scattered fibroglandular densities. Left post operative change. These results were verbally communicated with the patient and result sheet given to the patient on 04/12/21. ASSESSMENT: Benign, BI-RAD 2 RECOMMENDATION: Follow-up diagnostic mammogram of both breasts in 1 year.
== END | disposition home or self-care (01) ==
LOC: RADMAMWWP 12:57
PROVIDERS: ATTEND Radiology Radiation Oncology
DX: C50.412 Malignant neoplasm of upper-outer quadrant of left female breast (principal); Z98.890 Other specified postprocedural states; Z17.0 Estrogen receptor positive status [ER+]
CPT/HCPCS: 77066

== ENCOUNTER → 2021-04-25 | Outpatient (CLI) | payer OTHER ==
[2021-04-25 12:44] VITALS: BP 111/69; PULSE 95; RESP 16; TEMP 98.2
--- NOTE | 2021-04-25 12:57 | P.PN ---
Subjective Progress Note Date: 04/25/21 Principal diagnosis: left breast stage IA invasive ductal cancer left breast stage IA invasive ductal cancer Yuliana is a 60-year-old white female who underwent a routine screening mammogram performed on was noted to have an area of irregularity in the left breast upper outer quadrant. She subsequently underwent a diagnostic mammogram of the left breast and left breast ultrasound. This revealed a 9 mm asymmetric density in the axillary tail. Ultrasound-guided core biopsy was performed which revealed a grade 2 invasive ductal carcinoma. This is ER positive [place] HER-2 negative. The patient does not feel anything of concern in her breast. She did not complain of any nipple discharge or skin changes. She underwent a left breast lumpectomy and sentinel node biopsy on . Pathology revealed all margins to be negative for cancer. All lymph nodes were negative for metastatic disease. She finished 16 courses of radiation therapy on August 07. She is now on femara. She is tolerating this well. She had a low Oncotype score and did not receive any chemotherapy. She is not concerned about any lumps masses or nodules in either breast. She has some concerns as a friend had a recurrent breast cancer, however, the patient does not note any changes she is concerned about. She had a bilateral mammogram on 04-12-21 which was benign BIRAD 2. Note from Dr. Gibbons radiation oncology [place] [id number] reviewed. Caffeine: pop daily decreased from before Nicotine: none Theophylline: Daily Family history: father: lung cancer (smoker) paternal great aunt: breast cancer paternal grandmother: colon cancer Hormonal History: menarche: 12 , breast fed: yes, age at first : 20 menopause: hysterectomy at 47 left ovaries, heavy bleeding BCP: 1 years, than a tubal hormones: none Surgical history: 1. Hysterectomy 2. Appendectomy 3. colonoscopy 4. left breast lumpetomy and SNB Medical History: 1. High cholesterol 2. Hypertension 3. Hypothyroidism 4. Vitamin D well Social History: Nicotine: Negative Alcohol: Negative Drugs: Negative - Constitutional Constitutional: Denies chills, Denies fever - EENT Eyes: denies blurred vision, denies pain Ears: deny: decreased hearing, tinnitus Ears, nose, mouth and throat: Denies headache, Denies sore throat - Breasts Breasts: bilateral: as per HPI - Cardiovascular Cardiovascular: Denies chest pain, Denies shortness of breath - Respiratory Respiratory: Denies cough - Gastrointestinal Gastrointestinal: Denies abdominal pain, Denies diarrhea, Denies nausea, Denies vomiting - Genitourinary (Female) Genitourinary: Denies dysuria, Denies hematuria - Menstruation Menstruation: Reports post hysterectomy - Musculoskeletal Comment: cervical spine arthritis - Integumentary Integumentary: Denies pruritus, Denies rash - Neurological Neurological: Denies numbness, Denies weakness - Psychiatric Psychiatric: Reports anxiety - Endocrine Comment: hypothyroid - Hematologic/Lymphatic Comment: none - Allergic/Immunologic Allergic/Immunologic: Reports as per HPI, Reports seasonal allergies Objective - Vital Signs Vital signs: Vital Signs Temp 98.2 F 04/25/21 12:40 Pulse 95 04/25/21 12:40 Resp 16 04/25/21 12:40 BP 111/69 04/25/21 12:40 Pulse Ox 100 04/25/21 12:40 Intake & Output 04/24/21 04/25/21 04/25/21 18:59 06:59 18:59 Weight 73.936 kg - Constitutional General appearance: Present: average body habitus - EENT Eyes: Present: EOMI ENT: Present: hearing grossly normal - Respiratory Respiratory: bilateral: CTA - Cardiovascular Heart sounds: normal: S1, S2 - Gastrointestinal General gastrointestinal: Present: soft - Integumentary Integumentary: Present: normal turgor - Musculoskeletal Musculoskeletal: Present: gait normal - Psychiatric Psychiatric: Present: A&O x's 3, appropriate affect, intact judgment & insight - Additional findings Additional findings: Breast exam: BRA: 36D Inspection: Bilateral grade 3 ptosis, well-healed scar left breast from prior lumpectomy Palpation: Right breast: Multiple positional exam fibrocystic changes, no dominant masses or nodules of concern Right axilla: No adenopathy of concern Left breast: Fibrocystic changes no dominant masses or nodules of concern Well-healed scar from prior lumpectomy Left axilla: No adenopathy of concern Assessment and Plan Assessment: Impression: 1. Patient status post left breast lumpectomy sentinel node biopsy and radiation therapy for stage IA invasive ductal carcinoma, no evidence of recurrent disease 2. Patient presently on Femara 3. Patient had bilateral mammogram performed on [id number] which is benign BIRADS 2 4. No reviewed from Dr. Gibbons radiation oncology Plan: 1. Patient have repeat bilateral mammogram in 1 year 2. Follow-up here in 6 months for physician exam 3. Continued follow-up with medical and radiation oncology Cc:
== END | disposition home or self-care (01) ==
LOC: WWCWWP 12:29
PROVIDERS: ATTEND Surgery
DX: Z08 Encounter for follow-up examination after completed treatment for malignant neoplasm (principal)

== ENCOUNTER → 2021-10-24 | Outpatient (CLI) | payer OTHER ==
[2021-10-24 09:51] VITALS: BP 109/72; PULSE 74; RESP 16; TEMP 98
--- NOTE | 2021-10-24 10:15 | P.PN ---
Subjective Progress Note Date: 10/24/21 Principal diagnosis: left breast stage IA invasive ductal cancer left breast cancer stage IA left breast stage IA invasive ductal cancer Yuliana is a 60-year-old white female who underwent a routine screening mammogram performed on was noted to have an area of irregularity in the left breast upper outer quadrant. She subsequently underwent a diagnostic mammogram of the left breast and left breast ultrasound. This revealed a 9 mm asymmetric density in the axillary tail. Ultrasound-guided core biopsy was performed which revealed a grade 2 invasive ductal carcinoma. This is ER positive [place] HER-2 negative. The patient does not feel anything of concern in her breast. She did not complain of any nipple discharge or skin changes. She underwent a left breast lumpectomy and sentinel node biopsy on . Pathology revealed all margins to be negative for cancer. All lymph nodes were negative for metastatic disease. She finished 16 courses of radiation therapy on August 07. She is now on femara. She is tolerating this well. She is not concerned about any lumps masses or nodules in either breast. She has some concerns as a friend had a recurrent breast cancer, however, the patient does not note any changes she is concerned about. Her last mammogram was on this was bilateral and benign [place]IRADS 2[place] [id number] reviewed, bone density ordered for June 2022 Caffeine: coffee decaff. BID/ pop occasional Nicotine: none chocolate: Daily Family history: father: lung cancer (smoker) paternal great aunt: breast cancer paternal grandmother: colon cancer Hormonal History: menarche: 12 , breast fed: yes, age at first : 20 menopause: hysterectomy at 47 left ovaries, heavy bleeding BCP: 1 years, than a tubal hormones: none Surgical history: 1. Hysterectomy 2. Appendectomy 3. colonoscopy 4. left breast lumpetomy and SNB Medical History: 1. High cholesterol 2. Hypertension 3. Hypothyroidism 4. Vitamin D taken Social History: Nicotine: Negative Alcohol: Negative Drugs: Negative - Constitutional Constitutional: Denies chills, Denies fever - EENT Eyes: denies blurred vision, denies pain Ears: deny: decreased hearing, tinnitus Ears, nose, mouth and throat: Denies headache, Denies sore throat - Breasts Breasts: bilateral: as per HPI - Cardiovascular Cardiovascular: Denies chest pain, Denies shortness of breath - Respiratory Respiratory: Denies cough - Gastrointestinal Gastrointestinal: Denies abdominal pain, Denies diarrhea, Denies nausea, Denies vomiting - Genitourinary (Female) Genitourinary: Denies dysuria, Denies hematuria - Menstruation Menstruation: Reports post hysterectomy - Musculoskeletal Comment: cervical spine arthritis - Integumentary Integumentary: Denies pruritus, Denies rash - Neurological Neurological: Denies numbness, Denies weakness - Psychiatric Psychiatric: Reports anxiety - Endocrine Comment: hypothyroid - Hematologic/Lymphatic Comment: none - Allergic/Immunologic Allergic/Immunologic: Reports as per HPI, Reports seasonal allergies Objective - Vital Signs Vital signs: Vital Signs Temp 98.0 F 10/24/21 09:48 Pulse 74 10/24/21 09:48 Resp 16 10/24/21 09:48 BP 109/72 10/24/21 09:48 Pulse Ox Intake & Output 10/23/21 10/24/21 10/24/21 18:59 06:59 18:59 Weight 73.482 kg - Exam BMI 26.1 - Constitutional General appearance: Present: cooperative - EENT Eyes: Present: EOMI ENT: Present: hearing grossly normal - Neck Neck: Present: normal ROM - Respiratory Respiratory: bilateral: CTA - Cardiovascular Rhythm: regular Heart sounds: normal: S1, S2 - Integumentary Integumentary: Present: normal turgor - Musculoskeletal Musculoskeletal: Present: gait normal - Psychiatric Psychiatric: Present: A&O x's 3, appropriate affect, intact judgment & insight - Additional findings Additional findings: Breast Exam: BRA: 36D inspection: bilateral grade 2/3 ptosis palpation: right breast: Multi-positional exam fibrocystic changes no dominant masses or nodules of concern Right axilla: No adenopathy of concern Left breast: Well-healed scar from prior surgery, no dominant masses or nodules of concern and multiple positional exam Left axilla: No adenopathy of concern Assessment and Plan Assessment: Impression: Stage I a left breast invasive ductal carcinoma patient completed radiation therapy and is on Femara no evidence of recurrent disease Most recent mammogram March 2021 benign BIRADS 2 Plan: Continue Femara/bone density in June 2022 Bilateral mammogram March 2022 follow-up appointment at that time CC: DR. Stern
== END | disposition home or self-care (01) ==
LOC: WWCWWP 09:22
PROVIDERS: ATTEND Surgery
DX: Z53.9 Procedure and treatment not carried out, unspecified reason (principal)

== ENCOUNTER → 2022-01-21 | Outpatient (CLI) | payer OTHER ==
[2022-01-21 15:32] LABS: ALT 20 U/L (8-44); AST 22 U/L (13-35); Chol/HDL Ratio 2.97 Ratio; LDL Cholesterol,Calculated 124.8 mg/dL (0.0-131.0); VLDL Calculation 15.08 mg/dL (5.00-40.00)
== END | disposition home or self-care (01) ==
LOC: LABWHC1 06:58
PROVIDERS: ATTEND Internal Medicine Interventional Cardiology
DX: E78.00 Pure hypercholesterolemia, unspecified (principal)
CPT/HCPCS: 36415; 80061; 84450; 84460

== ENCOUNTER → 2022-04-14 | Outpatient (CLI) | payer OTHER ==
--- NOTE | 2022-04-14 10:43 | MM ---
Reason for Exam: Hx of breast cancer, conservation therapy. Last screening mammogram was performed 12 month(s) ago. Patient History: Menarche at age 12. First Full-Term at age 20. Hysterectomy at age 48. Postmenopausal. Breast cancer, age 59. Hormonal Contraceptives for 2 years, 6 months. 06/06/2020, Lumpectomy on the Left side. 06/06/2020, Malignant Core Biopsy on the left side. 04/19/2020, Malignant Core Biopsy on the left side. 2019, Radiation Therapy on the left side. Radiation Therapy, left. Tissue Density: The breast tissue is heterogeneously dense. This may lower the sensitivity of mammography. Findings: Analyzed By CAD. Pattern appears stable. Postsurgical changes are within the left breast posterior. No significant interval change is evident. Overall Assessment: Benign, BI-RAD 2 Management: Diagnostic Mammogram of both breasts in 1 year. A clinical breast exam by your physician is recommended on an annual basis and results should be correlated with mammographic findings. This exam should not preclude additional follow-up of suspicious palpable abnormalities. Results were given to the patient verbally at the time of exam. Electronically signed and approved by: Daquan Pendleton D.O. Radiologis
== END | disposition home or self-care (01) ==
LOC: RADMAMWWP 10:02
PROVIDERS: ATTEND Surgery
DX: Z85.3 Personal history of malignant neoplasm of breast (principal)
CPT/HCPCS: 77066; G0279; 77062

== ENCOUNTER → 2022-04-18 | Outpatient (CLI) | payer OTHER ==
[2022-04-18 11:54] VITALS: BP 139/79; PULSE 70; RESP 18; TEMP 98
--- NOTE | 2022-04-18 12:19 | P.PN ---
Subjective Progress Note Date: 04/18/22 Principal diagnosis: left breast stage IA invasive ductal carcinoma left breast stage IA invasive ductal cancer Yuliana is a 61-year-old white female who underwent a routine screening mammogram performed on was noted to have an area of irregularity in the left breast upper outer quadrant. She subsequently underwent a diagnostic mammogram of the left breast and left breast ultrasound. This revealed a 9 mm asymmetric density in the axillary tail. Ultrasound-guided core biopsy was performed which revealed a grade 2 invasive ductal carcinoma. This is ER positive [place] HER-2 negative. The patient does not feel anything of concern in her breast. She did not complain of any nipple discharge or skin changes. She underwent a left breast lumpectomy and sentinel node biopsy on . Pathology revealed all margins to be negative for cancer. All lymph nodes were negative for metastatic disease. She finished 16 courses of radiation therapy on August 07, 2020. She is now on femara. She is tolerating this well. She is not concerned about any lumps masses or nodules in either breast. Her last mammogram was on this was bilateral and benign BIRADS 2. Note from Dr. Dotson of 02-26-22 reviewed, bone density ordered for June 2022 Note from radiation oncology reviewed: 04-11-22 Caffeine: coffee decaff. BID/ pop occasional Nicotine: none chocolate: Daily Family history: father: lung cancer (smoker) paternal great aunt: breast cancer paternal grandmother: colon cancer Hormonal History: menarche: 12 , breast fed: yes, age at first : 20 menopause: hysterectomy at 47 left ovaries, heavy bleeding BCP: 1 years, than a tubal hormones: none Surgical history: 1. Hysterectomy 2. Appendectomy 3. colonoscopy 4. left breast lumpetomy and SNB Medical History: 1. High cholesterol 2. Hypertension 3. Hypothyroidism 4. Vitamin D taken Social History: Nicotine: Negative Alcohol: Negative Drugs: Negative - Constitutional Constitutional: Denies chills, Denies fever - EENT Eyes: denies blurred vision, denies pain Ears: deny: decreased hearing, tinnitus Ears, nose, mouth and throat: Denies headache, Denies sore throat - Breasts Breasts: bilateral: as per HPI - Cardiovascular Cardiovascular: Denies chest pain, Denies shortness of breath - Respiratory Respiratory: Denies cough - Gastrointestinal Gastrointestinal: Denies abdominal pain, Denies diarrhea, Denies nausea, Denies vomiting - Genitourinary (Female) Genitourinary: Denies dysuria, Denies hematuria - Menstruation Menstruation: Reports post hysterectomy - Musculoskeletal Comment: cervical spine arthritis - Integumentary Integumentary: Denies pruritus, Denies rash - Neurological Neurological: Denies numbness, Denies weakness - Psychiatric Psychiatric: Reports anxiety - Endocrine Comment: hypothyroid - Hematologic/Lymphatic Comment: none - Allergic/Immunologic Allergic/Immunologic: Reports as per HPI, Reports seasonal allergies Objective - Vital Signs Vital signs: Vital Signs Temp 98.0 F 04/18/22 11:51 Pulse 70 04/18/22 11:51 Resp 18 04/18/22 11:51 BP 139/79 04/18/22 11:51 Pulse Ox 97 04/18/22 11:51 FiO2 Intake & Output 04/17/22 04/18/22 04/18/22 18:59 06:59 18:59 Weight 74.843 kg - Exam BMIK: 26.6 - Constitutional General appearance: Present: cooperative - EENT Eyes: Present: EOMI ENT: Present: hearing grossly normal - Neck Neck: Present: normal ROM - Respiratory Respiratory: bilateral: CTA - Cardiovascular Heart sounds: normal: S1, S2 - Gastrointestinal General gastrointestinal: Present: soft - Integumentary Integumentary: Present: normal turgor - Musculoskeletal Musculoskeletal: Present: gait normal - Psychiatric Psychiatric: Present: A&O x's 3, appropriate affect, intact judgment & insight - Additional findings Additional findings: Breast Exam: BRA: 38D Inspection: Lateral grade 2 ptosis Palpation: Right breast: Multiple positional exam no dominant masses or nodules of concern Right axilla: No adenopathy of concern Left breast: Well-healed scar from prior surgery, no dominant masses or nodules of concern Left axilla: No adenopathy of concern Assessment and Plan Assessment: Impression: 1. High cholesterol 2. Hypertension 3. Hypothyroidism 4. No evidence of any recurrent left breast cancer Plan: Bilateral mammogram in 1 year Repeat examination in 6 months Continue following with medical and radiation oncology Continue Femara CC: Dr. Stern
== END ==
LOC: WWCWWP 11:23
PROVIDERS: ATTEND Surgery
DX: Z08 Encounter for follow-up examination after completed treatment for malignant neoplasm (principal); Z85.3 Personal history of malignant neoplasm of breast; E78.00 Pure hypercholesterolemia, unspecified; I10 Essential (primary) hypertension; E03.9 Hypothyroidism, unspecified; Z88.1 Allergy status to other antibiotic agents

== ENCOUNTER → 2022-08-08 | Outpatient (CLI) | payer OTHER ==
[2022-08-08 14:39] LABS: Basophils # (A) 0.03 X 10*3/uL (0.00-0.10); Basophils % (A) 0.4 %; Eosinophils % (A) 2.7 %; HCT 49.3 % (37.2-46.3); HGB 15.5 g/dL (12.0-15.0); Immature Grans, Automated 0.3 %; Lymphocytes % (A) 24.1 %; MCH 28.5 pg (27.0-32.0); MCHC 31.4 g/dL (32.0-37.0); MCV 90.8 fL (80.0-97.0); Mean Platelet Volume 11.2 fL (9.5-12.2); Monocytes # (A) 0.45 X 10*3/uL (0.20-1.00); NRBC Per 100 WBC 0 /100 WBCS (0.0-0.0); Neutrophils # (A) 4.96 X 10*3/uL (1.80-7.70); Neutrophils % (A) 66.5 %; Platelet Count 251 X 10*3/uL (140-440); RBC 5.43 X 10*6/uL (4.10-5.20); RDW 12.9 % (11.5-14.5); WBC 7.46 X 10*3/uL (4.50-10.00)
[2022-08-08 18:07] LABS: Chol/HDL Ratio 3.47 Ratio; Creatine Kinase 89 U/L (26-186); LDL Cholesterol,Calculated 158.7 mg/dL (0.0-131.0)
[2022-08-08 18:23] LABS: ALT 31 U/L (8-44); AST 36 U/L (13-35); African American GFR (CKD) 108.6 (60.0-200.0); Albumin 4.8 g/dL (3.8-4.9); Albumin/Globulin Ratio 1.67 (1.60-3.17); Alkaline Phosphatase 81 U/L (41-126); BUN/Creat Ratio 18.18 Ratio (12.00-20.00); Blood Urea Nitrogen 12.4 mg/dL (9.0-27.0); Calcium 10.1 mg/dL (8.7-10.3); Carbon Dioxide 22.7 mmol/L (20.0-27.5); Chloride 108 mmol/L (96-109); Globulin 2.9 g/dL (1.6-3.3); Glucose 85 mg/dL (70-110); Non-African American GFR(CKD) 93.7 (60.0-200.0); Potassium 4.3 mmol/L (3.5-5.5); Sodium 145 mmol/L (135-145); Total Protein 7.7 g/dL (6.2-8.2)
== END | disposition home or self-care (01) ==
LOC: LABWHC1 07:46
PROVIDERS: ATTEND Physician Assistant Medical
DX: I10 Essential (primary) hypertension (principal); E78.5 Hyperlipidemia, unspecified; E03.9 Hypothyroidism, unspecified
CPT/HCPCS: 36415; 80053; 80061; 82550; 83036; 84439; 84443; 84481; 85025

== ENCOUNTER → 2022-10-17 | Outpatient (CLI) | payer OTHER ==
--- NOTE | 2022-10-17 15:30 | P.PN ---
Subjective Progress Note Date: 10/17/22 Principal diagnosis: left breast stage IA invasive ductal cancer left breast stage IA invasive ductal cancer Yuliana is a 62-year-old white female who underwent a routine screening mammogram performed on was noted to have an area of irregularity in the left breast upper outer quadrant. She subsequently underwent a diagnostic mammogram of the left breast and left breast ultrasound. This revealed a 9 mm asymmetric density in the axillary tail. Ultrasound-guided core biopsy was performed which revealed a grade 2 invasive ductal carcinoma. This is ER positive [place] HER-2 negative. The patient does not feel anything of concern in her breast. She did not complain of any nipple discharge or skin changes. She underwent a left breast lumpectomy and sentinel node biopsy on . Pathology revealed all margins to be negative for cancer. All lymph nodes were negative for metastatic disease. She finished 16 courses of radiation therapy on August 07, 2020. She is now on femara. She is tolerating this well. She is not concerned about any lumps masses or nodules in either breast. Her last mammogram was on this was bilateral and benign BIRADS 2. Note from Dr. Dotson of 09-02-22 reviewed, bone density ordered for June 2022 Caffeine: coffee decaff. BID/ pop occasional Nicotine: none chocolate: Daily Family history: father: lung cancer (smoker) paternal great aunt: breast cancer paternal grandmother: colon cancer Hormonal History: menarche: 12 , breast fed: yes, age at first : 20 menopause: hysterectomy at 47 left ovaries, heavy bleeding BCP: 1 years, than a tubal hormones: none Surgical history: 1. Hysterectomy 2. Appendectomy 3. colonoscopy 4. left breast lumpectomy and SNB Medical History: 1. High cholesterol 2. Hypertension 3. Hypothyroidism 4. Vitamin D taken Social History: Nicotine: Negative Alcohol: Negative Drugs: Negative - Constitutional Constitutional: Denies chills, Denies fever - EENT Eyes: denies blurred vision, denies pain Ears: deny: decreased hearing, tinnitus Ears, nose, mouth and throat: Denies headache, Denies sore throat - Breasts Breasts: bilateral: as per HPI - Cardiovascular Cardiovascular: Denies chest pain, Denies shortness of breath - Respiratory Respiratory: Denies cough - Gastrointestinal Gastrointestinal: Denies abdominal pain, Denies diarrhea, Denies nausea, Denies vomiting - Genitourinary (Female) Genitourinary: Denies dysuria, Denies hematuria - Menstruation Menstruation: Reports post hysterectomy - Musculoskeletal Comment: cervical spine arthritis - Integumentary Integumentary: Denies pruritus, Denies rash - Neurological Neurological: Denies numbness, Denies weakness - Psychiatric Psychiatric: Reports anxiety - Endocrine Comment: hypothyroid - Hematologic/Lymphatic Comment: none - Allergic/Immunologic Allergic/Immunologic: Reports as per HPI, Reports seasonal allergies Objective - Constitutional General appearance: Present: cooperative - EENT Eyes: Present: EOMI ENT: Present: hearing grossly normal - Neck Neck: Present: normal ROM - Respiratory Respiratory: bilateral: CTA - Cardiovascular Heart sounds: normal: S1, S2 - Gastrointestinal General gastrointestinal: Present: soft - Integumentary Integumentary: Present: normal turgor - Musculoskeletal Musculoskeletal: Present: gait normal - Psychiatric Psychiatric: Present: A&O x's 3, appropriate affect, intact judgment & insight - Additional findings Additional findings: Breast Exam: BRA: 38D Inspection: bilateral grade 2 ptosis Palpation: Right breast: Multiple positional exam no dominant masses or nodules of concern Right axilla: No adenopathy of concern Left breast: Well-healed scar from prior surgery, no dominant masses or nodules of concern Left axilla: No adenopathy of concern Assessment and Plan Assessment: Impression: stage I left breast invasive ductal cancer no evidence of recurrence tolerating Femora Plan: bilateral mammogram in March 2023 with appointment at that time continue Femora CC: Dr. Stern
[2022-10-17 15:31] VITALS: BP 148/82; PULSE 79; RESP 18; TEMP 97.5
== END ==
LOC: WWCWWP 15:19
PROVIDERS: ATTEND Surgery
DX: Z85.3 Personal history of malignant neoplasm of breast (principal); E78.00 Pure hypercholesterolemia, unspecified; I10 Essential (primary) hypertension; E03.9 Hypothyroidism, unspecified; Z88.0 Allergy status to penicillin

== ENCOUNTER → 2023-04-16 | Outpatient (CLI) | payer OTHER ==
--- NOTE | 2023-04-16 14:22 | MM ---
Reason for Exam: Additional evaluation requested from prior study. Last screening mammogram was performed 12 month(s) ago. Patient History: Menarche at age 12. First Full-Term at age 20. Hysterectomy at age 48. Postmenopausal. Breast cancer, left, age 59. Previous chest radiation therapy at age 59. Hormonal Contraceptives for 2 years, 6 months. 06/06/2020, Lumpectomy on the Left side. 06/06/2020, Malignant Core Biopsy on the left side. 04/19/2020, Malignant Core Biopsy on the left side. 2019, Radiation Therapy on the left side. Radiation Therapy, left. Tissue Density: The breast tissue is heterogeneously dense. This may lower the sensitivity of mammography. Findings: Analyzed By CAD. Postsurgical posttreatment changes left breast. Chronic nodularity central and outer aspect of the right breast. No significant change from prior exams. Overall Assessment: Benign, BI-RAD 2 Management: Screening Mammogram of both breasts in 1 year. . Results were given to the patient verbally at the time of exam. Patient should continue monthly self-breast exams. A clinical breast exam by your physician is recommended on an annual basis. This exam should not preclude additional follow-up of suspicious palpable abnormalities. Electronically signed and approved by: Pavithra Malin M.D. Radiologist
== END | disposition home or self-care (01) ==
LOC: RADMAMWWP 13:58
PROVIDERS: ATTEND Surgery
DX: R92.8 Other abnormal and inconclusive findings on diagnostic imaging of breast (principal); Z85.3 Personal history of malignant neoplasm of breast; Z78.0 Asymptomatic menopausal state
CPT/HCPCS: 77066; G0279; 77062

== ENCOUNTER → 2023-04-23 | Outpatient (CLI) | payer OTHER ==
[2023-04-23 08:41] VITALS: BP 120/73; PULSE 63; RESP 18; TEMP 97.6
--- NOTE | 2023-04-23 08:46 | P.PN ---
Subjective Progress Note Date: 04/23/23 Principal diagnosis: left breast stage IA invasive ductal cancer 2019 left breast stage IA invasive ductal cancer Yuliana is a 62-year-old white female who underwent a routine screening mammogram performed on was noted to have an area of irregularity in the left breast upper outer quadrant. She subsequently underwent a diagnostic mammogram of the left breast and left breast ultrasound. This revealed a 9 mm asymmetric density in the axillary tail. Ultrasound-guided core biopsy was performed which revealed a grade 2 invasive ductal carcinoma. This is ER positive [place] HER-2 negative. The patient does not feel anything of concern in her breast. She did not complain of any nipple discharge or skin changes. She underwent a left breast lumpectomy and sentinel node biopsy on . Pathology revealed all margins to be negative for cancer. All lymph nodes were negative for metastatic disease. She finished 16 courses of radiation therapy on August 07, 2020. She is now on femara. She is tolerating this well. She is not concerned about any lumps masses or nodules in either breast. Her last mammogram was on this was bilateral and benign BIRADS 2. Is not complaining of any new lumps masses or nodules in either breast. Caffeine: coffee decaff. BID/ pop occasional Nicotine: none chocolate: Daily Family history: father: lung cancer (smoker) paternal great aunt: breast cancer paternal grandmother: colon cancer Hormonal History: menarche: 12 , breast fed: yes, age at first : 20 menopause: hysterectomy at 47 left ovaries, heavy bleeding BCP: 1 years, than a tubal hormones: none Surgical history: 1. Hysterectomy 2. Appendectomy 3. colonoscopy 4. left breast lumpectomy and SNB Medical History: 1. High cholesterol 2. Hypertension 3. Hypothyroidism 4. Vitamin D taken 5. pre-diabetic Social History: Nicotine: Negative Alcohol: Negative Drugs: Negative - Constitutional Constitutional: Denies chills, Denies fever - EENT Eyes: denies blurred vision, denies pain Ears: deny: decreased hearing, tinnitus Ears, nose, mouth and throat: Denies headache, Denies sore throat - Breasts Breasts: bilateral: as per HPI - Cardiovascular Cardiovascular: Denies chest pain, Denies shortness of breath - Respiratory Respiratory: Denies cough - Gastrointestinal Gastrointestinal: Denies abdominal pain, Denies diarrhea, Denies nausea, Denies vomiting - Genitourinary (Female) Genitourinary: Denies dysuria, Denies hematuria - Menstruation Menstruation: Reports post hysterectomy - Musculoskeletal Comment: cervical spine arthritis - Integumentary Integumentary: Denies pruritus, Denies rash - Neurological Neurological: Denies numbness, Denies weakness - Psychiatric Psychiatric: Reports anxiety - Endocrine Comment: hypothyroid - Hematologic/Lymphatic Comment: none - Allergic/Immunologic Allergic/Immunologic: Reports as per HPI, Reports seasonal allergies Objective - Constitutional General appearance: Present: cooperative - EENT Eyes: Present: EOMI ENT: Present: hearing grossly normal - Neck Neck: Present: normal ROM - Respiratory Respiratory: bilateral: CTA - Cardiovascular Heart sounds: normal: S1, S2 - Gastrointestinal General gastrointestinal: Present: soft - Integumentary Integumentary: Present: normal turgor - Musculoskeletal Musculoskeletal: Present: gait normal - Psychiatric Psychiatric: Present: A&O x's 3, appropriate affect, intact judgment & insight - Additional findings Additional findings: Breast Exam: BRA: 38D Inspection: bilateral grade 2 ptosis Palpation: Right breast: Multiple positional exam no dominant masses or nodules of concern Right axilla: No adenopathy of concern Left breast: Well-healed scar from prior surgery, no dominant masses or nodules of concern Left axilla: No adenopathy of concern Assessment and Plan Assessment: Impression: stage I left breast invasive ductal cancer no evidence of recurrence tolerating Femora Plan: bilateral mammogram in March 2024 appointment in 6 months continue to follow with medical oncology Follow-up sooner any questions or concerns continue Femora CC: Dr. Stern
== END ==
LOC: WWCWWP 08:20
PROVIDERS: ATTEND Surgery
DX: I10 Essential (primary) hypertension (principal); E78.00 Pure hypercholesterolemia, unspecified; E03.9 Hypothyroidism, unspecified; E11.9 Type 2 diabetes mellitus without complications; Z80.3 Family history of malignant neoplasm of breast; Z85.3 Personal history of malignant neoplasm of breast; Z88.0 Allergy status to penicillin; Z79.890 Hormone replacement therapy; Z79.899 Other long term (current) drug therapy

== ENCOUNTER → 2023-07-15 | Outpatient (CLI) | payer OTHER ==
[2023-07-15 11:11] LABS: Chol/HDL Ratio 2.48 Ratio; LDL Cholesterol,Calculated 84.3 mg/dL (0.0-131.0); T4, Free (Free Thyroxine) 1.58 ng/dL (0.80-1.80); VLDL Calculation 15.86 mg/dL (5.00-40.00)
== END | disposition home or self-care (01) ==
LOC: LABWHC1 08:06
PROVIDERS: ATTEND Family Medicine
DX: E03.9 Hypothyroidism, unspecified (principal); E78.5 Hyperlipidemia, unspecified
CPT/HCPCS: 36415; 80061; 84439; 84443; 84481

== ENCOUNTER → 2023-10-19 | Outpatient (CLI) | payer OTHER ==
[2023-10-19 12:09] LABS: Chol/HDL Ratio 2.59 Ratio; LDL Cholesterol,Calculated 91.6 mg/dL (0.0-131.0); VLDL Calculation 12.12 mg/dL (5.00-40.00)
[2023-10-19 12:13] LABS: ALT 44 U/L (8-44); AST 33 U/L (13-35)
== END | disposition home or self-care (01) ==
LOC: LABWHC1 06:56
PROVIDERS: ATTEND Internal Medicine Interventional Cardiology
DX: E78.2 Mixed hyperlipidemia (principal)
CPT/HCPCS: 36415; 80061; 84450; 84460

== ENCOUNTER → 2023-10-30 | Outpatient (CLI) | payer OTHER ==
[2023-10-30 11:36] VITALS: BP 119/75; PULSE 80; RESP 15; TEMP 98.2
--- NOTE | 2023-10-30 11:44 | P.PN ---
Subjective Progress Note Date: 10/30/23 04/23/23 Principal diagnosis: left breast stage IA invasive ductal cancer 2019 left breast stage IA invasive ductal cancer Yuliana is a 63-year-old white female who underwent a routine screening mammogram performed on was noted to have an area of irregularity in the left breast upper outer quadrant. She subsequently underwent a diagnostic mammogram of the left breast and left breast ultrasound. This revealed a 9 mm asymmetric density in the axillary tail. Ultrasound-guided core biopsy was performed which revealed a grade 2 invasive ductal carcinoma. This was ER positive [place] HER-2 negative. The patient did not feel anything of concern in her breast. She did not complain of any nipple discharge or skin changes. She underwent a left breast lumpectomy and sentinel node biopsy on . Pathology revealed all margins to be negative for cancer. All lymph nodes were negative for metastatic disease. She finished 16 courses of radiation therapy on August 07, 2020. She is now on femara. She is tolerating this well. She is not concerned about any lumps masses or nodules in either breast. Her last mammogram was on this was bilateral and benign BIRADS 2. note medical oncology 05-26-23 reviewed, continue [facility] note radiation oncology 05-06-23 reveiwedfinished radiation 08-07-20, no evidence of disease Caffeine: coffee decaff. BID/ pop occasional Nicotine: none chocolate: Daily Family history: father: lung cancer (smoker) paternal great aunt: breast cancer paternal grandmother: colon cancer Hormonal History: menarche: 12 , breast fed: yes, age at first : 20 menopause: hysterectomy at 47 left ovaries, heavy bleeding BCP: 1 years, than a tubal hormones: none Surgical history: 1. Hysterectomy 2. Appendectomy 3. colonoscopy 4. left breast lumpectomy and SNB Medical History: 1. High cholesterol 2. Hypertension 3. Hypothyroidism 4. Vitamin D taken 5. pre-diabetic Social History: Nicotine: Negative Alcohol: Negative Drugs: Negative - Constitutional Constitutional: Denies chills, Denies fever - EENT Eyes: denies blurred vision, denies pain Ears: deny: decreased hearing, tinnitus Ears, nose, mouth and throat: Denies headache, Denies sore throat - Breasts Breasts: bilateral: as per HPI - Cardiovascular Cardiovascular: Denies chest pain, Denies shortness of breath - Respiratory Respiratory: Denies cough - Gastrointestinal Gastrointestinal: Denies abdominal pain, Denies diarrhea, Denies nausea, Denies vomiting - Genitourinary (Female) Genitourinary: Denies dysuria, Denies hematuria - Menstruation Menstruation: Reports post hysterectomy - Musculoskeletal Comment: cervical spine arthritis - Integumentary Integumentary: Denies pruritus, Denies rash - Neurological Neurological: Denies numbness, Denies weakness - Psychiatric Psychiatric: Reports anxiety - Endocrine Comment: hypothyroid - Hematologic/Lymphatic Comment: none - Allergic/Immunologic Allergic/Immunologic: Reports as per HPI, Reports seasonal allergies Objective - Vital Signs Vital signs: Vital Signs Temp 98.2 F 10/30/23 11:10 Pulse 80 10/30/23 11:10 Resp 15 10/30/23 11:10 BP 119/75 10/30/23 11:10 Pulse Ox 97 10/30/23 11:10 FiO2 Intake & Output 10/29/23 10/30/23 10/30/23 18:59 06:59 18:59 Weight 65.771 kg - Constitutional General appearance: Present: cooperative - EENT Eyes: Present: EOMI ENT: Present: hearing grossly normal - Neck Neck: Present: normal ROM - Respiratory Respiratory: bilateral: CTA - Cardiovascular Rhythm: regular Heart sounds: normal: S1, S2 - Gastrointestinal General gastrointestinal: Present: soft - Integumentary Integumentary: Present: normal turgor - Musculoskeletal Musculoskeletal: Present: gait normal - Psychiatric Psychiatric: Present: A&O x's 3, appropriate affect, intact judgment & insight - Additional findings Additional findings: Breast Exam: BRA: 38D Inspection: bilateral grade 2 ptosis Palpation: Right breast: Multiple positional exam no dominant masses or nodules of concern Right axilla: No adenopathy of concern Left breast: Well-healed scar from prior surgery, no dominant masses or nodules of concern Left axilla: No adenopathy of concern Assessment and Plan Assessment: Impression: stage I left breast invasive ductal cancer no evidence of recurrence tolerating [facility] Plan: bilateral mammogram in March 2024 appointment in 6 months continue to follow with medical oncology Follow-up sooner any questions or concerns continue [facility] CC: Dr. Stern
== END ==
LOC: WWCWWP 10:19
PROVIDERS: ATTEND Surgery
DX: N64.89 Other specified disorders of breast (principal); E03.9 Hypothyroidism, unspecified; E78.00 Pure hypercholesterolemia, unspecified; I10 Essential (primary) hypertension; R73.03 Prediabetes; Z85.3 Personal history of malignant neoplasm of breast; Z80.3 Family history of malignant neoplasm of breast; Z88.0 Allergy status to penicillin; Z79.899 Other long term (current) drug therapy; Z79.890 Hormone replacement therapy

== ENCOUNTER → 2024-01-15 | Outpatient (CLI) | payer OTHER ==
--- NOTE | 2024-01-15 14:33 | US ---
EXAMINATION TYPE: US carotid duplex BILAT DATE OF EXAM: 01/15/2024 COMPARISON: NONE CLINICAL INDICATION: Female, 63 years old with history of R09.89 SYMPTOMS AND SIGNS INVOLVING THE CIR C; TECHNIQUE: Carotid duplex ultrasound examination. Indirect Doppler criteria was utilized. FINDINGS: EXAM MEASUREMENTS: RIGHT: Peak Systolic Velocity (PSV) cm/sec ----- Right CCA: 85.1 ----- Right ICA: 89.9 ----- Right ECA: 87.4 ICA/CCA ratio: 1.1 RIGHT: End Diastole cm/sec ----- Right CCA: 17.5 ----- Right ICA: 27.8 ----- Right ECA: 10.6 LEFT: Peak Systolic Velocity (PSV) cm/sec ----- Left CCA: 85.3 ----- Left ICA: 80.3 ----- Left ECA: 88.9 ICA/CCA ratio: 0.9 LEFT: End Diastole cm/sec ----- Left CCA: 19.7 ----- Left ICA: 22.7 ----- Left ECA: 15.7 VERTEBRALS (direction of flow): Right Vertebral: Antegrade Left Vertebral: Antegrade Rhythm: Normal No signficant stenosis IMPRESSION: 1. Mild intimal thickening in the right carotid bulb and bifurcation but no significant stenosis spac e and color grayscale imaging. 2. No hemodynamically significant stenosis bilaterally based on peak systolic velocities and ratios. Criteria for Assigning % of Stenosis / Diameter reduction (Estimation based on the indirect measurements of the internal carotid artery velocities (ICA PSV). 1. Normal (no stenosis)=ICA PSV < 125 cm/s: ratio < 2.0: ICA EDV<40 cm/s. 2. Less than 50% stenosis=ICA PSV < 125 cm/s: ratio < 2.0: ICA EDV<40 cm/s. 3. 50 to 69% stenosis=ICA PSV of 125 to 230 cm/s: ration 2.0 ? 4.0: ICA EDV 40-100 cm/s. 4. Greater than 70% stenosis to near occlusion= ICA PSV > 230 cm/s: ratio > 4.0: ICA EDV > 100 cm/s. 5. Near occlusion= ICA PSV velocities may be low or undetectable: variable ratio and ICA EDV. 6. Total occlusion=unable to detect flow.
== END | disposition home or self-care (01) ==
LOC: RADUSWWP 11:54
PROVIDERS: ATTEND Family Medicine
DX: R09.89 Other specified symptoms and signs involving the circulatory and respiratory systems (principal)
CPT/HCPCS: 93880

== ENCOUNTER → 2024-01-20 | Outpatient (CLI) | payer OTHER ==
[2024-01-20 15:51] LABS: HCT 46.7 % (37.2-46.3); HGB 15.2 g/dL (12.0-15.0); MCH 29.5 pg (27.0-32.0); MCHC 32.5 g/dL (32.0-37.0); MCV 90.7 FL (80.0-97.0); Mean Platelet Volume 11.1 FL (9.5-12.2); NRBC Per 100 WBC 0 X 10*3/uL (0.00-0.01); Platelet Count 235 X 10*3/uL (140-440); RBC 5.15 X 10*6/uL (4.10-5.20); RDW 12.5 % (11.5-14.5)
[2024-01-20 16:02] LABS: Blood Urea Nitrogen 13.7 mg/dL (9.0-27.0); Carbon Dioxide 27.1 mmol/L (21.6-31.8); Chloride 104 mmol/L (96-109); Potassium 4.2 mmol/L (3.5-5.5); Sodium 142 mmol/L (135-145)
== END | disposition home or self-care (01) ==
LOC: LABPAT 11:44
PROVIDERS: ATTEND Internal Medicine Interventional Cardiology
DX: Z01.812 Encounter for preprocedural laboratory examination (principal); I25.10 Atherosclerotic heart disease of native coronary artery without angina pectoris
CPT/HCPCS: 80051; 82565; 84520; 85027

== ENCOUNTER 2024-02-01 06:02 | Day surgery (SDC) | payer OTHER ==
[2024-01-27 14:29] VITALS: BMI 23.3
[~2024-02-01 06:02] MED LIST changes: +ALPRAZolam 0.25 MG TAB PO PRN; -FAMOTIDINE 20 MG/2 ML VIAL IV PRN; -HEPARIN SODIUM,PORCINE 5,000 UNIT/ML 1 ML VIAL SQ ONE; -HYDROmorphone 0.5 MG/0.5 ML SYRINGE IVP PRN; -LACTATED RINGERS 1,000 ML IV SCH; +NITROGLYCERIN SL TABS 0.4 MG TAB SUBLINGUAL PRN; -ONDANSETRON 4 MG/2 ML VIAL IVP PRN; -Pre Op ABX Message 1 EACH MISC MISCELLANE ONE
[2024-02-01] MEDS: SODIUM CHLORIDE 0.9% 1,000 ML IV ONE (06:08)
[2024-02-01] MEDS: SODIUM CHLORIDE 0.9% 1,000 ML in EMPTY BAG 1 BAG IV SCH (06:37)
[2024-02-01] MEDS: ALPRAZolam 0.5 MG TAB PO PRN (06:37)
[2024-02-01] MEDS: ASPIRIN 325 MG TAB PO ONE (06:37)
[2024-02-01 07:04] VITALS: RESP 16; TEMP 98
[2024-02-01] MEDS ORDERED: VERAPAMIL 2.5 MG/ML 2 ML AMP ONE (07:15)
[2024-02-01] MEDS ORDERED: LIDOCAINE 1% INJ 10MG/ML (20 ML MDV) ONE (07:15)
[2024-02-01] MEDS ORDERED: HEPARIN SODIUM 1,000 UN/ML (10ML VL) ONE (07:29)
[2024-02-01] MEDS ORDERED: fentaNYL (PF) 50 MCG/ML 2 ML AMP ONE (07:43)
[2024-02-01] MEDS: fentaNYL (PF) 50 MCG/ML 2 ML AMP IVP ONE (07:43)
[2024-02-01] MEDS: MIDAZOLAM 2 MG/2 ML VIAL IVP ONE ×2 (07:43→07:45)
[2024-02-01] MEDS: LIDOCAINE 1% INJ 10MG/ML (20 ML MDV) SQ ONE (07:44)
[2024-02-01] MEDS: VERAPAMIL SYRINGE (5 MG/10 ML) INTRAARTER ONE (07:45)
[2024-02-01] MEDS: HEPARIN SODIUM 1,000 UN/ML (10ML VL) IV ONE (07:51)
[2024-02-01] MEDS: IOPAMIDOL-370 100ML BTL INJ ONE (08:10)
[2024-02-01] MEDS ORDERED: RX INFO: IV CONTRAST WAS GIVEN 1 EACH MISC MISCELLANE PRN (08:16)
--- NOTE | 2024-02-01 08:23 | P.PCN ---
Date of Procedure: 02/01/24 Operative Findings: CARDIAC CATHETERIZATION PERFORMING PHYSICIAN: Marco Antonio Strauss MD, RPVI PROCEDURE PERFORMED: 1. Selective right and left coronary angiogram 2. Left heart catheterization 3. Ultrasound-guided access of the right radial artery 4. IFR of the LCx and LAD INDICATION: Chest discomfort and 63-year-old female patient who underwent coronary CTA and that showed severe disease involving the left anterior descending artery. Also she does have hypertension and dyslipidemia COMPLICATION: None APPROACH: Right radial artery LEVEL OF SEDATION: Moderate with a sedation length of 20 minutes PROCEDURE DESCRIPTION: After obtaining an informed consent, the patient was brought to cardiac photo lab manager. Local anesthesia was performed using lidocaine subcutaneously. The right radial artery was cannulated using Seldinger technique, the guidewire passed easily, following that we advanced a 5-Par[place]ayan sheath dilator assembly, the wire and dilator were removed and sheath was flushed. Following that, 2 mg of verapamil along with 5000 unit heparin were given. Selective right and left coronary angiogram using a 6-[place] JR4 and JL 3.5 catheters. Following that we did left heart catheterization using 6-Paraguayan pigtail catheter. After that we decided to do Dobler wire measurement of the LAD and LCx. After zeroing the Doppler wire and equalizing between the Doppler wire and guiding catheter the left main was engaged and subsequently the left circumflex was wired. The IFR came to be at 1.00. After that I did advance the wire to the LAD and IFR came to be at 0.92. The procedure at that point was completed The procedure was completed there was no complication. SELECTIVE CORONARY ANGIOGRAM: The right coronary artery: Large-caliber vessel and a dominant vessel and appears to be angiographically normal Left main: Is angiographically normal The left circumflex: Large-caliber vessel nondominant vessel with ostial disease appears to be in the range of 40 to 50%. The lesion is not flow-limiting by Doppler wire The left anterior descending artery: The proximal LAD appears to have a lesion in the range of 40 to 50%. The mid LAD has a lesion appears to be in the range of 40 to 50% as well. The lesion is not flow-limiting by Doppler wire HEMODYNAMICS: The LVEDP was 4 mmHg with no significant gradient across aortic valve CONCLUSION: 1. Intermediate two-vessel CAD involving the LCx and LAD appears to be nonflow limiting by Doppler wire 2. Normal left-sided filling pressure POSTPROCEDURE MANAGEMENT: Medical treatment
[2024-02-01] MEDS ORDERED: SODIUM CHLORIDE 0.9% 1,000 ML IV SCH (08:30)
[2024-02-01 11:56] VITALS: BP 97/55; PULSE 58
== END 2024-02-01 13:05 ==
LOC: CATHCVL 06:02
PROVIDERS: ATTEND Internal Medicine Interventional Cardiology
DX: I25.10 Atherosclerotic heart disease of native coronary artery without angina pectoris (principal); I10 Essential (primary) hypertension; E78.5 Hyperlipidemia, unspecified; I47.19 Other supraventricular tachycardia; Z82.49 Family history of ischemic heart disease and other diseases of the circulatory system; Z88.0 Allergy status to penicillin; Z79.899 Other long term (current) drug therapy
CPT/HCPCS: 93458; 93799; 76937; C1887; C1769 ×2; C1894; J2250; J2001; J3010; J1644; Q9967

== ENCOUNTER → 2024-04-19 | Outpatient (CLI) | payer BC ==
--- NOTE | 2024-04-19 09:24 | MM ---
Reason for Exam: Hx of breast cancer, conservation therapy. Last screening mammogram was performed 12 month(s) ago. Patient History: Menarche at age 12. First Full-Term at age 20. Hysterectomy at age 48. Postmenopausal. Breast cancer, left, age 59. Previous chest radiation therapy at age 59. Hormonal Contraceptives for 2 years, 6 months. 06/06/2020, Lumpectomy on the Left side. 06/06/2020, Malignant Core Biopsy on the left side. 04/19/2020, Malignant Core Biopsy on the left side. 2020, Radiation Therapy on the left side. Radiation Therapy, left. Tissue Density: There are scattered areas of fibroglandular density. Findings: Analyzed By CAD. Postoperative changes of left-sided lumpectomy. No evidence for mass or distortion. No suspicious calcifications. Overall Assessment: Benign, BI-RAD 2 Management: Diagnostic Mammogram of both breasts in 1 year. . Results were given to the patient verbally at the time of exam. Patient should continue monthly self-breast exams. A clinical breast exam by your physician is recommended on an annual basis. This exam should not preclude additional follow-up of suspicious palpable abnormalities. Note on Mary scores and lifetime risk: 1. A Mary score greater than 3% is considered moderate risk. If this is the case, consider specialist referral to assess eligibility for a risk reducing agent. 2. If overall lifetime risk for the development of breast cancer is 20% or higher, the patient may qualify for future screening with alternating mammogram and breast MRI. Electronically signed and approved by: Kye David M.D. Radiologis
== END | disposition home or self-care (01) ==
LOC: RADMAMWWP 08:57
PROVIDERS: ATTEND Surgery
DX: Z85.3 Personal history of malignant neoplasm of breast (principal); R92.323 Mammographic fibroglandular density, bilateral breasts; Z78.0 Asymptomatic menopausal state
CPT/HCPCS: 77062; 77066

== ENCOUNTER → 2024-05-27 | Outpatient (CLI) | payer BC ==
[2024-05-27 09:59] VITALS: BP 127/60; RESP 18; TEMP 98.7
--- NOTE | 2024-05-27 10:18 | P.PN ---
Subjective Progress Note Date: 05/27/24 Principal diagnosis: left breast IDC 2019; stage I left breast stage IA invasive ductal cancer 2019 [id number]- Yuliana is a 63-year-old white female who underwent a routine screening mammogram performed on was noted to have an area of irregularity in the left breast upper outer quadrant. She subsequently underwent a diagnostic mammogram of the left breast and left breast ultrasound. This revealed a 9 mm asymmetric density in the axillary tail. Ultrasound-guided core biopsy was performed which revealed a grade 2 invasive ductal carcinoma. This was ER positive [place] HER-2 negative. The patient did not feel anything of concern in her breast. She did not complain of any nipple discharge or skin changes. She underwent a left breast lumpectomy and sentinel node biopsy on . Pathology revealed all margins to be negative for cancer. All lymph nodes were negative for metastatic disease. She finished 16 courses of radiation therapy on August 07, 2020. She is now on femara. She is tolerating this well. Was noted to have low oncotype. She is not concerned about any lumps masses or nodules in either breast. Her last mammogram was on this was bilateral and benign BIRADS 2, this was personally reviewed and interpreted note medical oncology 05-26-23 reviewed, continue [facility] appointment in November 2024 note radiation oncology 05-13-24 reviewed finished radiation 08-07-20, no evidence of disease Caffeine: coffee decaff. BID/ pop occasional Nicotine: none chocolate: Daily Family history: father: lung cancer (smoker) paternal great aunt: breast cancer paternal grandmother: colon cancer Hormonal History: menarche: 12 , breast fed: yes, age at first : 20 menopause: hysterectomy at 47 left ovaries, heavy bleeding BCP: 1 years, than a tubal hormones: none Surgical history: 1. Hysterectomy 2. Appendectomy 3. colonoscopy 4. left breast lumpectomy and SNB 5. cardiac cath Medical History: 1. High cholesterol 2. Hypertension 3. Hypothyroidism 4. Vitamin D taken 5. pre-diabetic Social History: Nicotine: Negative Alcohol: Negative Drugs: Negative - Constitutional Constitutional: Denies chills, Denies fever - EENT Eyes: denies blurred vision, denies pain Ears: deny: decreased hearing, tinnitus Ears, nose, mouth and throat: Denies headache, Denies sore throat - Breasts Breasts: bilateral: as per HPI - Cardiovascular Cardiovascular: Denies chest pain, Denies shortness of breath - Respiratory Respiratory: Denies cough - Gastrointestinal Gastrointestinal: Denies abdominal pain, Denies diarrhea, Denies nausea, Denies vomiting - Genitourinary (Female) Genitourinary: Denies dysuria, Denies hematuria - Menstruation Menstruation: Reports post hysterectomy - Musculoskeletal Comment: cervical spine arthritis - Integumentary Integumentary: Denies pruritus, Denies rash - Neurological Neurological: Denies numbness, Denies weakness - Psychiatric Psychiatric: Reports anxiety - Endocrine Comment: hypothyroid - Hematologic/Lymphatic Comment: none - Allergic/Immunologic Allergic/Immunologic: Reports as per HPI, Reports seasonal allergies Objective - Vital Signs Vital signs: Vital Signs Temp 98.7 F 05/27/24 09:56 Pulse Resp 18 05/27/24 09:56 BP 127/60 05/27/24 09:56 Pulse Ox 99 05/27/24 09:56 FiO2 Intake & Output 05/26/24 05/27/24 05/27/24 18:59 06:59 18:59 Weight 65.771 kg - Constitutional General appearance: Present: cooperative - EENT Eyes: Present: EOMI ENT: Present: hearing grossly normal - Neck Neck: Present: normal ROM - Respiratory Respiratory: bilateral: CTA - Cardiovascular Heart sounds: normal: S1, S2 - Gastrointestinal General gastrointestinal: Present: soft - Integumentary Integumentary: Present: normal turgor - Musculoskeletal Musculoskeletal: Present: gait normal - Psychiatric Psychiatric: Present: A&O x's 3, appropriate affect, intact judgment & insight - Additional findings Additional findings: Breast Exam: BRA: 38D Inspection: bilateral grade 2 ptosis Palpation: Right breast: Multi- positional exam no dominant masses or nodules of concern Right axilla: No adenopathy of concern Left breast: Well-healed scar from prior surgery, no dominant masses or nodules of concern Left axilla: No adenopathy of concern Assessment and Plan Assessment: Impression: stage I left breast invasive ductal cancer 2019 no evidence of recurrence tolerating [facility] bilateral mammogram personally interpreted from 04-19-24; BIRAD 2 Plan: bilateral mammogram in March 2025 follow up after mammogram continue to follow with medical oncology Follow-up sooner any questions or concerns continue [facility] CC: Dr. Stern
== END ==
LOC: WWCWWP 09:03
PROVIDERS: ATTEND Surgery
DX: R92.8 Other abnormal and inconclusive findings on diagnostic imaging of breast (principal); N64.89 Other specified disorders of breast; Z85.3 Personal history of malignant neoplasm of breast; Z92.3 Personal history of irradiation; Z80.3 Family history of malignant neoplasm of breast; Z88.0 Allergy status to penicillin

== ENCOUNTER → 2024-06-30 | Outpatient (CLI) | payer BC ==
[2024-06-30 12:48] VITALS: BP 128/79; PULSE 54; RESP 17; TEMP 97.5
--- NOTE | 2024-06-30 13:10 | P.PN ---
Subjective Progress Note Date: 06/30/24 Subjective Progress Note Date: 06-30-24 Principal diagnosis: left breast IDC 2019; stage I left breast stage IA invasive ductal cancer 2019 [id number]- Yuliana is a 63-year-old white female who underwent a routine screening mammogram performed on was noted to have an area of irregularity in the left breast upper outer quadrant. She subsequently underwent a diagnostic mammogram of the left breast and left breast ultrasound. This revealed a 9 mm asymmetric density in the axillary tail. Ultrasound-guided core biopsy was performed which revealed a grade 2 invasive ductal carcinoma. This was ER positive [place] HER-2 negative. The patient did not feel anything of concern in her breast. She did not complain of any nipple discharge or skin changes. She underwent a left breast lumpectomy and sentinel node biopsy on . Pathology revealed all margins to be negative for cancer. All lymph nodes were negative for metastatic disease. She finished 16 courses of radiation therapy on August 07, 2020. She is now on femora. She is tolerating this well. Was noted to have low oncotype. She is not concerned about any lumps masses or nodules in either breast. Her last mammogram was on this was bilateral and benign BIRADS 2, note medical oncology 05-26-23 reviewed, continue [facility] appointment in November 2024 note radiation oncology 05-13-24 reviewed finished radiation 08-07-20, no evidence of disease On examination of 05-27-24 the patient did have some fullness in the left axilla which I believe is most likely related to scar tissue. The patient however is concerned regarding this and to assure that there is nothing there worrisome we will get an ultrasound of the axilla. An ultrasound of the axilla of the left breast was done on 06-30-24. This was personally reviewed and did not show any lesions of concern. I have discussed the results with Yuliana, she understands that she does not have any new lesions that she is concerned about. She will continue her normal surveillance schedule. Caffeine: coffee decaff. BID/ pop occasional Nicotine: none chocolate: Daily Family history: father: lung cancer (smoker) paternal great aunt: breast cancer paternal grandmother: colon cancer Hormonal History: menarche: 12 , breast fed: yes, age at first : 20 menopause: hysterectomy at 47 left ovaries, heavy bleeding BCP: 1 years, than a tubal hormones: none Surgical history: 1. Hysterectomy 2. Appendectomy 3. colonoscopy 4. left breast lumpectomy and SNB 5. cardiac cath Medical History: 1. High cholesterol 2. Hypertension 3. Hypothyroidism 4. Vitamin D taken 5. pre-diabetic Social History: Nicotine: Negative Alcohol: Negative Drugs: Negative - Constitutional Constitutional: Denies chills, Denies fever - EENT Eyes: denies blurred vision, denies pain Ears: deny: decreased hearing, tinnitus Ears, nose, mouth and throat: Denies headache, Denies sore throat - Breasts Breasts: bilateral: as per HPI - Cardiovascular Cardiovascular: Denies chest pain, Denies shortness of breath - Respiratory Respiratory: Denies cough - Gastrointestinal Gastrointestinal: Denies abdominal pain, Denies diarrhea, Denies nausea, Denies vomiting - Genitourinary (Female) Genitourinary: Denies dysuria, Denies hematuria - Menstruation Menstruation: Reports post hysterectomy - Musculoskeletal Comment: cervical spine arthritis - Integumentary Integumentary: Denies pruritus, Denies rash - Neurological Neurological: Denies numbness, Denies weakness - Psychiatric Psychiatric: Reports anxiety - Endocrine Comment: hypothyroid - Hematologic/Lymphatic Comment: none - Allergic/Immunologic Allergic/Immunologic: Reports as per HPI, Reports seasonal allergies Impression: stage I left breast invasive ductal cancer 2019 no evidence of recurrence tolerating [facility] bilateral mammogram from 04-19-24; BIRAD 2 left breast ultrasound reviewed on 06-30-24 no lesions of concern. Plan: bilateral mammogram in March 2025 follow up after mammogram continue to follow with medical oncology Follow-up sooner any questions or concerns continue [facility] CC: Dr. Stern Objective - Vital Signs Vital signs: Vital Signs Temp 97.5 F L 06/30/24 12:41 Pulse 54 L 06/30/24 12:41 Resp 17 06/30/24 12:41 BP 128/79 06/30/24 12:41 Pulse Ox 99 06/30/24 12:41 FiO2 Intake & Output 06/29/24 06/30/24 06/30/24 18:59 06:59 18:59 Weight 65.771 kg
== END ==
LOC: WWCWWP 11:13
PROVIDERS: ATTEND Surgery

== ENCOUNTER → 2024-06-30 | Outpatient (CLI) | payer BC ==
--- NOTE | 2024-06-30 11:47 | US ---
EXAMINATION TYPE: US axilla LT DATE OF EXAM: 06/30/2024 COMPARISON: None CLINICAL INDICATION: Female, 63 years old with history of N63 BREAST LUMP/MASS; R/O adenopathy TECHNIQUE: Sonographic images taken of left axilla FINDINGS/IMPRESSION: Left axilla scanned. No prominent lymph nodes identified at time of scan. No f luid collections. [facility], , 06/30/2024 11:45 AM
== END | disposition home or self-care (01) ==
LOC: RADUSWWP 10:12
PROVIDERS: ATTEND Surgery
DX: N63.20 Unspecified lump in the left breast, unspecified quadrant (principal)

== ENCOUNTER → 2024-08-26 | Outpatient (CLI) | payer BC ==
[2024-08-26 11:27] LABS: Chol/HDL Ratio 2.54 Ratio; LDL Cholesterol,Calculated 93.4 mg/dL (0.0-131.0); T4, Free (Free Thyroxine) 1.45 ng/dL (0.80-1.80); VLDL Calculation 14.48 mg/dL (5.00-40.00)
== END | disposition home or self-care (01) ==
LOC: LABWHC1 06:57
PROVIDERS: ATTEND Physician Assistant Medical
DX: Z00.00 Encounter for general adult medical examination without abnormal findings (principal); E03.9 Hypothyroidism, unspecified
CPT/HCPCS: 36415; 80061; 84439; 84443; 84481

== ENCOUNTER → 2025-04-20 | Outpatient (CLI) | payer MEDICARE ==
--- NOTE | 2025-04-20 09:22 | MM ---
Reason for Exam: Additional evaluation requested from prior study. Last screening mammogram was performed 12 month(s) ago. Patient History: Menarche at age 12. First Full-Term at age 20. Hysterectomy at age 48. Postmenopausal. Breast cancer, left, age 59. Previous chest radiation therapy at age 59. Hormonal Contraceptives for 2 years, 6 months. 06/06/2020, Lumpectomy on the Left side. 06/06/2020, Malignant Core Biopsy on the left side. 04/19/2020, Malignant Core Biopsy on the left side. 2020, Radiation Therapy on the left side. Radiation Therapy, left. Tissue Density: The breasts are heterogeneously dense, which may obscure small masses. Findings: Analyzed By CAD. Postsurgical and posttreatment changes left breast. Chronic nodularity on the right. No significant change from prior exams. Overall Assessment: Benign, BI-RAD 2 Management: Screening Mammogram of both breasts in 1 year. Results were given to the patient verbally at the time of exam. Patient should continue monthly self-breast exams. A clinical breast exam by your physician is recommended on an annual basis. This exam should not preclude additional follow-up of suspicious palpable abnormalities. Note on Mary scores and lifetime risk: 1. A Mary score greater than 3% is considered moderate risk. If this is the case, consider specialist referral to assess eligibility for a risk reducing agent. 2. If overall lifetime risk for the development of breast cancer is 20% or higher, the patient may qualify for future screening with alternating mammogram and breast MRI. [facility], , 04/20/2025 9:20 AM. Electronically signed and approved by: Pavithra Malin M.D. Radiologist
== END | disposition home or self-care (01) ==
LOC: RADMAMWWP 08:52
PROVIDERS: ATTEND Surgery
DX: R92.333 Mammographic heterogeneous density, bilateral breasts (principal); Z78.0 Asymptomatic menopausal state; Z85.3 Personal history of malignant neoplasm of breast
CPT/HCPCS: 77062; 77066